=== PATIENT | male | born 1955 | race Caucasian/White ===

== ENCOUNTER 2020-11-08 14:33 | Inpatient (IN) | payer OTHER, MEDICARE ==
[~2020-11-08] VITALS: Ht 172.7 cm; Wt 88.2 kg
[~2020-11-08 14:33] MED LIST: ALBU90OI INH; ARTHRITIS PAIN100 GM TOP; ATOR40TA PO; Aspir 8181 MG PO; GABA300 PO; LISI20 PO; METO25 PO; NITR.4SL SL; PANT20 PO; SYMBICORT 80-10.2 GM INH
[2020-11-08 15:10] LABS: Hematocrit 40.3 % (37.0-53.0); Hemoglobin 13.1 g/dL (13.5-17.5); Mean Corpuscular HGB 30.3 pg (26.0-34.0); Mean Corpuscular HGB Conc 32.5 g/dL (31.5-36.5); Mean Corpuscular Volume 93 fL (80-100); Mean Platelet Volume 8.9 fL (9.1-12.4); Platelet Count 357 K/mm3 (150-400); RDW Standard Deviation 44.8 fL (35.1-46.3); Red Blood Cell Count 4.32 M/mm3 (4.30-5.90); White Blood Cell Count 9.76 K/mm3 (4.00-11.30)
[2020-11-08 15:10] LABS: Calcium, Ionized (POC) 1.06 mmol/L (1.10-1.46); Chloride (POC) 103 mmol/L (98-108); Creatinine (POC) 1.7 mg/dL (0.8-1.3); Glucose (ISTAT POC) 101 mg/dL (70-99); Hemoglobin (POC) 13.3 g/dL (13.5-17.5); Potassium (POC) 4.8 mmol/L (3.5-5.5); Sodium (POC) 135 mmol/L (135-148); Total CO2 (POC) 24 mmol/L (21-32)
[2020-11-08 15:21] LABS: International Normalized Ratio 1.04; Prothrombin Time Results 11.1 Sec (9.7-11.5)
[2020-11-08 15:24] LABS: Alanine Aminotransfer (ALT/SGP 33 U/L (12-78); Albumin, Blood 3.3 g/dL (3.4-5.0); Alk Phos 73 U/L (50-136); Anion Gap 6 mmol/L (6-16); Aspartate Aminotrans (AST/SGOT 20 U/L (12-37); Bilirubin, Total 0.5 mg/dL (0.1-1.0); Blood Urea Nitrogen 30 mg/dL (8-24); Bun/Creatinine Ratio 19.6 (12.0-20.0); CHOL/HDL RATIO 2.8; CO2, Blood 24 mmol/L (21-32); Calcium, Blood 8.7 mg/dL (8.5-10.1); Chloride, Blood 107 mmol/L (98-108); Cholesterol 68 mg/dL (50-200); Creatinine, Blood 1.53 mg/dL (0.60-1.20); Globulin, Blood 3.4 g/dL (2.2-4.0); Glomerular Filtration Rate 49 (60-); Glucose, Blood 103 mg/dL (70-99); HDL Cholesterol 24 mg/dL (>39); Low Density Lipoprotein Chol 24 mg/dL (0-110); Magnesium, Blood 2.4 mg/dL (1.6-2.4); Potassium, Blood 4.8 mmol/L (3.5-5.5); Sodium, Blood 137 mmol/L (136-145); Total Protein, Blood 6.7 g/dL (6.4-8.2); Triglycerides 100 mg/dL (30-160); Troponin I 0.047 ng/mL (0.000-0.040); Very Low Density Lipoprot Chol 20 mg/dL (6-32)
[2020-11-08] MEDS ORDERED: PLAVIX75 MG PO (16:52)
[2020-11-08 18:28] LABS: Source, Urine Catheter
[2020-11-08 18:31] LABS: Appearance, Urine Clear (Clear); Bilirubin, Urine Neg (Neg); Blood, Urine Neg (Neg); Color, Urine Yellow (P-Yellow); Glucose Qualitative, Urine Neg (Neg); Ketones, Urine Neg (Neg); Leukocyte Esterase, Urine Neg (Neg); Nitrite, Urine Neg (Neg); Protein, Urine Neg (Neg); Specific Gravity, Urine 1.015 (1.003-1.022); Urobilinogen, Urine NORM (Normal)
--- NOTE | 2020-11-08 19:16 | NUR ---
ASSUMPTION OF CARE AND SHIFT SUMMAR PATIENT ARRIVED TO UNIT AT 1710 FROM TECHNICAL SALES SPECIALIST. PATIENT ALERT AND ORIENTED X 4, AFEBRILE. PATIENT COMPLAINED OF BACK PAIN AND CHEST PAIN. PATIENT GIVEN PRN NORCO. PATIENT ON HEPARIN DRIP AT 12 UNITS/ KG/ HOUR. NITRO AT 5 MCG/ MINUTE. PATIENT SATTING 90% AND GREATER ON RA. INSPIRATORY RHONCHI NOTED IN LOWER LUNG LOBES. UPPER LUNG LOBES CLEAR TO AUSCULTATION. PATIENT IN SR WITH BBB, HR IN THE 80S. SBP LOW 80S TO LOW 100S. GI WNL. GARLAND PLACED. GARLAND INITIALLY DRAINING YELLOW COLORED URINE BUT URINE HAS NOW BECOME PINK IN COLOR. PATIENT HAS MIDLINE INCISION TO CHEST FROM TRIPLE BYPASS LAST WEEK. PATIENT HAS 2 SCABS TO LEFT LEG. SHEATH TO R GROIN; ARTERIAL LINE CONNECTED. SLIGHT OOZING OF BLOOD NOTED AND SMALL HEMATOMA AT SITE; THIS HAS NOT CHANGED SINCE TECHNICAL SALES SPECIALIST BROUGHT PATIENT DOWN. DR. LITTLE AWARE OF HEMATOMA AND STATES TO GIVE HER A CALL IF HEMATOMA INCREASES IN SIZE. SITE CHECKED WITH ONCOMING RN. BED LOW, CALL LIGHT IN REACH. PATIENT ORIENTED TO UNIT, ROOM AND CALL LIGHT.
--- NOTE | 2020-11-08 21:42 | NUR ---
ASSUMED PT CARE FROM LILY RIVERA AT 1915 PT RESTING IN BED IN THE SUPINE POSITION WITH RIGHT LEG EXTENDED STRAIGHT D/T ARTERIAL LINE NOTED TO RIGHT FEMORAL SITE. PT IS ALERT AND ORIENTED AND ABLE TO MAKE NEEDS KNOWN. SITE HAS A SMALL <5MM HEMATOMA NOTED TO INSERTION SITE. PT IS BEING COMPLIANT WITH KEEPING HIS LEG STRAIGHT AND NOT FLEXING OR BRINGING HIS HEAD OFF THE PILLOW. ARTERIAL LINE ZERO'D AT PHELBOSTATIC AXIS; BP'S STABLE; SBP 90-110'S, SEE FLOWSHEET. HEPARIN WAS INFUSING AT 12MCG/KG/HR UPON START OF SHIFT. NO PTT HAD BEEN DRAWN AT THIS POINT. BLOOD NOTED IN GARLAND CATHETER BAG WITH SOME MIXED AIDEN, CLEAR URINE. CALLED PHARMACY REGARDING NO ORDER FOR HEPARIN TO BE INFUSING AT 12MCG/KG/HR, WELL ASKED FOR A STAT PTT D/T BLOOD IN URINE. PTT DRAWN WITH RESULTS SHOWING CRITICAL LAB OF >139. PHARMACY NOTIFIED WITH ORDERS TO STOP HEPARIN; WITH REDRAW PTT LABS. SITE REMAINED STABLE WITH MINIMAL OOZING. PT C/O 3/10 BACK AND CHEST PAIN. PT MEDICATED WITH NORCO ON DAY SHIFT; HOWEVER, WAS UNEFFECTIVE FOR BACK PAIN. TURNED NITRO GTT UP FROM 5MCG/MIN TO 10MCG/MIN. UPON REASSESSMENT PT STATED CHEST PAIN WAS A 1/10; HOWEVER, BACK PAIN WAS STILL A 3/10. TURNED NITRO GTT OFF D/T SOFT BP'S AND HEADACHE; THEN MEDICATED WITH 0.5MG OF DILAUDID WITH GOOD EFFECT. CALL LIGHT WITHIN REACH; PT ABLE TO MAKE NEEDS KNOWN. EDUCATED NOT TO BEND OR FLEX RIGHT LEG, BUT ABLE TO BEND/FLEX LEFT. THEREFORE, PT ABLE TO SLIGHTLY SHIFT WEIGHT WITH RETURN VERBAL UNDERSTANDING AND DEMONSTRATION OF RESTRICTIONS. WILL CONTINUE TO MONITOR.
[2020-11-09 03:26] LABS: BASOPHILS PERCENT AUTO 1 % (0-2); EOSINOPHILS PERCENT AUTO 5 % (0-6); Hematocrit 37.8 % (37.0-53.0); Hemoglobin 12.5 g/dL (13.5-17.5); IMMATURE GRAN ABSOLUTE AUTO 0.09 K/mm3 (0.00-0.10); IMMATURE GRAN PERCENT AUTO 1 % (0-1); LYMPHOCYTES ABSOLUTE AUTO 1.32 K/mm3 (0.84-5.20); LYMPHOCYTES PERCENT AUTO 16 % (21-46); MONOCYTES ABSOLUTE AUTO 0.56 K/mm3 (0.16-1.47); MONOCYTES PERCENT AUTO 7 % (4-13); Mean Corpuscular HGB 30.1 pg (26.0-34.0); Mean Corpuscular HGB Conc 33.1 g/dL (31.5-36.5); Mean Corpuscular Volume 91 fL (80-100); Mean Platelet Volume 8.8 fL (9.1-12.4); NEUTROPHILS ABSOLUTE AUTO 5.58 K/mm3 (1.96-9.15); NEUTROPHILS PERCENT AUTO 69 % (41-73); Platelet Count 295 K/mm3 (150-400); RDW Standard Deviation 43.8 fL (35.1-46.3); Red Blood Cell Count 4.15 M/mm3 (4.30-5.90); White Blood Cell Count 8.05 K/mm3 (4.00-11.30)
[2020-11-09 03:44] LABS: Anion Gap 4 mmol/L (6-16); Blood Urea Nitrogen 25 mg/dL (8-24); Bun/Creatinine Ratio 20.8 (12.0-20.0); CO2, Blood 26 mmol/L (21-32); CPK Creatine Kinase 39 U/L (39-308); Calcium, Blood 8.4 mg/dL (8.5-10.1); Chloride, Blood 109 mmol/L (98-108); Creatine Kinase MB 1.7 ng/mL (0.0-3.6); Creatine Kinase MB Index 4.4 (0.0-4.0); Glomerular Filtration Rate >60 (60-); Glucose, Blood 96 mg/dL (70-99); Potassium, Blood 4.7 mmol/L (3.5-5.5); Sodium, Blood 139 mmol/L (136-145); Troponin I 0.188 ng/mL (0.000-0.040)
--- NOTE | 2020-11-09 06:06 | NUR ---
END OF SHIFT SUMMARY NO SIGNIFICANT CHANGES SINCE LAST ENTRY. HEPARIN GTT RESTARTED AT 13 UNITS/KG/HR. PT RECEIVED A BOLUS DOSE OF 4500 UNITS. FEMORAL LINE REMAINS IN PLACE WITH SAME HEMATOMA NOTED AT INSERTION SITE; HAS NOT GROWN ANY BIGGER. BLOOD IN URINE HAS NOTED TO SLOW DOWN AND URINE IS TURNING BACK TO AN AIDEN, CLEAR. PT C/O 02/06 BACK PAIN T/O NIGHT AND A DULL, ACHE CHEST PAIN. NITRO GTT REMAINED OFF T/O SHIFT AND PT HAS BEEN MEDICATED WITH DILAUDID AND NORCO PER ORDERS, WHICH HAVE BOTH BEEN EFFECTIVE FOR PT. PT IS VERY COMPLIANT WITH UTILIZING HIS PILLOW TO SPLINT FOR DEEP BREATHING AND COUGHING EXERCISES. OBTAINED INCENTIVE SPIROMETER TO KEEP AT BEDSIDE. PT REQUESTING TO SPEAK WITH LEASING SPECIALIST REGARDING HIS DIET IT HAS BEEN DIFFICULT FOR HIM TO ADJUST AFTER HIS CABG PROCEDURE. PT HAS BEEN VERY APPRECIATIVE OF CARES. CALL LIGHT WITHIN REACH AND PT ABLE TO MAKE NEEDS KNOWN; WILL CONTINUE TO MONITOR UNTIL REPORT IS HANDED OFF TO ONCOMING RN.
--- NOTE | 2020-11-09 07:15 | NUR ---
Assumed care of pt at 0700 with LILY Wyatt. Pt A&O x 4. Answers questions. Follows commands verbalizes needs. Pleasant and cooperative with care. Denies chest pain and shortness of breath. Nitro drip off. SR per monitor. BP stable, 90s/60s. MAP 60 or greater. BP measured by artieral line to right femoral artery. Site has a small amount of dried red drainage. Small hematoma, assessed with offgoing RN, unchanged. Site dressed with tegaderm CHG. Pt verbalizes understanding of activity limitations with regard to art line. Bed in lowest position. Call light in reach. Pt denies need at this time.
--- NOTE | 2020-11-09 08:00 | NUR ---
Call placed to Dr Vail. Clarified nitro drip and notified provider that pt is free of chest pain and BP is low/normal. Nitro to remain off as long as pt is free of chest pain. Clarified AM meds. Provider changed metopolol dose, stated to give ranexa. Hold lisinopril. Hold Imdur, but reassess at 1200. 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
--- NOTE | 2020-11-09 09:45 | NUR ---
Dr Vail in to see pt. Pt reports pain to LUQ, worse with inhalation. Patient states that this is affecting his ability to take a deep breath and use incentive spirometer. Medicated with dilaudid. Dr Vail to place orders for GI meds.
--- NOTE | 2020-11-09 11:45 | NUR ---
Pt reports that LUQ pain is worsening. Call placed to Dr Vail to update on GI meds and failure to relieve pain. Message left with provider.
--- NOTE | 2020-11-09 12:15 | NUR ---
Patient states that pain moved to his chest and pain is now 8/10, "like fire". Nitro drip restarted. At this time, 20 mcg/min. Not relieving chest pain. Discussed case with broker in charge, diluadid given. Call placed to provider 2 times since last note, provider unable to come to phone, message left with labor operator staff requesting provider to come see pt. SBP 85-90 mmHg. MAP 60-65.
--- NOTE | 2020-11-09 12:45 | NUR ---
After administration of dilaudid, pt did not tolerate IV nitroglycerin. Nitroglycerin on standby. Dr Vail in to see patient. 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 States to leave nitroglycerin on SB. Give IV metoprolol for tachycardia and versed to help with pt's anxiety.
--- NOTE | 2020-11-09 13:00 | NUR ---
Patient to laboratory immunologist.
--- NOTE | 2020-11-09 15:45 | NUR ---
Pt back from carpenter/labor. Pt earned one stent to circ. Femoral sheath is now absent. Site closed with angioseal. Site dressed with tegadem CHG. Dressing C/D/I. Site has small hematoma, unchanged from prior documentation. Pt reports chest pain 01/09. Pt drowsy.
--- NOTE | 2020-11-09 18:08 | NUR ---
SUMMARY Pt A&O x 4. Drowsy post clinical laboratory aides teacher. Chest pain increased to 6/10. Dilaudid given. This did not resolve chest pain. Nitro drip started at 5 mcg/min but has since been titrated up to 15 mcg/min. BP stable. At this time, chest pain is 3/10. Metoprolol given and Imdur given. Pt on 2 LPM NC due to drop in SpO2 with sleep. SpO2 90% org greater at this time. Will continue to closely monitor until care handoff and bedside report with oncoming RN.
--- NOTE | 2020-11-09 20:00 | NUR ---
ASSUMED PT CARE AT 1900 FROM LILY LO PT SITTING UP IN BED. APPEARS PALE, CLAMMY, AND DIAPHORETIC. STATES HE DOESN'T FEEL WELL. C/O 3/10 CHEST PAIN. NITRO GTT INFUSING AT 15MCG/MIN. BP'S ON THE SOFTER SIDE WITH SBP NOTED TO BE 80-90, MAPS >60. TURNED OFF NITRO AT THIS TIME AND MEDICATED WITH DILAUDID INSTEAD, WHICH APPEARED MORE EFFECTIVE FOR PT THAN NITRO GTT. LUNG SOUNDS ARE CLEAR TO BILATERAL UPPERS, AND DIMINISHED TO BILATERAL LOWERS. PT NOTED TO BE SHALLOW BREATHING; UNABLE TO USE INCENTIVE SPIROMETER D/T PAIN. PT HAD AN EPISODE OF CHOKING ON HIS WATER THIS MORNING WHILE TAKING HIS MEDICATIONS; PLAN IS TO CALL DR. LUEVANO REGARDING A CHEST XRAY. PT HAS A VERY WEAK COUGH; HOWEVER, STATES HE STILL FEELS RESIDUAL "JUNK" IN HIS LUNGS FROM THIS MORNING AFTER HIS ASPIRATION EPISODE. NO ELEVATED TEMP. VSS REMAIN UNCHANGED AND STABLE, SEE FLOWSHEET. CALL LIGHT WITHIN REACH; WILL CONTINUE TO MONITOR.
--- NOTE | 2020-11-09 20:04 | NUR ---
DR. MOREL CALLED REGARDING CONCERNS REGARDING PT'S SHALLOW BREATHING AND PAIN WITH INSPIRATIONS. INFORMED DR. MOREL THAT PT DID ASPIRATE ON A LITTLE BIT OF WATER EARLIER THIS MORNING DURING AM MED PASS AND PT DOESN'T FEEL LIKE HE WAS ABLE TO CLEAR IT WELL ENOUGH D/T CHEST PAIN WHEN HE COUGHS. ORDERS FOR CXR. ALSO ASKED ABOUT MEDICATING WITH MILK OF MAGNESIA NOW D/T PT FEELING LIKE HE NEEDS TO HAVE A BM AND WANTS TO AVOID STRAINING; ORDERS OBTAINED. CLARIFIED THAT SHE STILL WANTS HEPARIN GTT STARTED AT MIDNIGHT; WHICH SHE CONFIRMED.
--- NOTE | 2020-11-09 21:43 | NUR ---
CALL OUT TO DR. MOREL RESULTS FOR CXR SHOW SOME PLEURAL EFFUSIONS AND PULMONARY EDEMA. NEW ORDERS FOR 40MG OF LASIX X1 DOSE AND TO REASSESS IN THE MORNING. ORDERS TO CALL IF TEMPERATURE SPIKES OR WBC COUNT RISES IN THE MORNING IN ORDER TO INITIATE ANTIBIOTIC TREATMENT IF NEEDED
[2020-11-09 22:56] LABS: Adenovirus Not Detected (NOT DETECT); Bordetella pertussis Not Detected (NOT DETECT); Chlamydophila pneumoniae Not Detected (NOT DETECT); Coronavirus 229E Not Detected (NOT DETECT); Coronavirus HKU1 Not Detected (NOT DETECT); Coronavirus NL63 Not Detected (NOT DETECT); Coronavirus OC43 Not Detected (NOT DETECT); Human Metapneumovirus Not Detected (NOT DETECT); Human Rhinovirus/Enterovirus Not Detected (NOT DETECT); Influenza A/2009-H1 Not Detected (NOT DETECT); Influenza A/H1 Not Detected (NOT DETECT); Influenza A/H3 Not Detected (NOT DETECT); Influenza B Not Detected (NOT DETECT); Mycoplasma pneumoniae Not Detected (NOT DETECT); Parainfluenza Virus 1 Not Detected (NOT DETECT); Parainfluenza Virus 2 Not Detected (NOT DETECT); Parainfluenza Virus 3 Not Detected (NOT DETECT); Parainfluenza Virus 4 Not Detected (NOT DETECT); Respiratory Syncytial Virus Not Detected (NOT DETECT); SARS-Cov-2 (COVID-19), BioFire Not Detected (NOT DETECT)
[2020-11-10 01:41] LABS: BASOPHILS ABSOLUTE AUTO 0.07 K/mm3 (0.00-0.23); BASOPHILS PERCENT AUTO 0 % (0-2); EOSINOPHILS ABSOLUTE AUTO 0.02 K/mm3 (0.00-0.68); EOSINOPHILS PERCENT AUTO 0 % (0-6); Hematocrit 36.8 % (37.0-53.0); Hemoglobin 12.3 g/dL (13.5-17.5); IMMATURE GRAN ABSOLUTE AUTO 0.14 K/mm3 (0.00-0.10); IMMATURE GRAN PERCENT AUTO 1 % (0-1); LYMPHOCYTES PERCENT AUTO 4 % (21-46); MONOCYTES ABSOLUTE AUTO 1.37 K/mm3 (0.16-1.47); MONOCYTES PERCENT AUTO 7 % (4-13); Mean Corpuscular HGB 30.4 pg (26.0-34.0); Mean Corpuscular HGB Conc 33.4 g/dL (31.5-36.5); Mean Corpuscular Volume 91 fL (80-100); Mean Platelet Volume 9.2 fL (9.1-12.4); NEUTROPHILS ABSOLUTE AUTO 17.86 K/mm3 (1.96-9.15); NEUTROPHILS PERCENT AUTO 88 % (41-73); Platelet Count 404 K/mm3 (150-400); RDW Coefficient Variation 12.9 % (11.7-14.2); RDW Standard Deviation 42.6 fL (35.1-46.3); Red Blood Cell Count 4.05 M/mm3 (4.30-5.90); White Blood Cell Count 20.26 K/mm3 (4.00-11.30)
--- NOTE | 2020-11-10 01:44 | NUR ---
UPDATE CALL OUT TO DR. MOREL REGARDING CHANGE IN PT'S CONDITION. PT APPEARS VERY PALE, DIAPHORETIC, AND ALTERED IN MENTATION. HE KNOWS WHERE HE HIS AND WHAT YEAR IT IS; HOWEVER, WHEN ASKED SPECIFIC QUESTIONS PT RESPONDS WITH NONSENSICAL RESPONSES. STATES HIS CHEST PAIN IS 3/10; MEDICATED WITH DILAUDID WITH MINIMAL EFFECT. PT IS VERY SOB; SPEAKS IN 1-2 WORD SENTENCES; OXYGEN PLACED AT 2L. SPO2 >95%. PT STATES HE CAN'T GET ANY AIR. LUNG SOUNDS ARE VERY TIGHT AND DIMINISHED TO BILATERAL LOWER LOBES. DR. MOREL AT BEDSIDE WITH ORDERS FOR BLOOD CULTURES X2; LACTIC ACID, AND LASIX 40MG IV NOW. MORNING LABS OBTAINED AND SENT. WAITING CHEM RESULTS TO SEE WHAT ANTIOBIOTIC COVERAGE PT WILL REQUIRE. CONSULT CALLED TO DR. DALTON FOR CRITICAL CARE CONSULT PER DR. MOREL D/T POSSIBLE INTUBATION IF PT'S RESPIRATORY STATUS CONTINUES TO DECLINE. ORDERS FOR ABG AND BIPAP IF NEEDED. HR REMAINS 110-120'S WITH BP'S LOW; SBP 70-90'S.
[2020-11-10 01:54] LABS: PO2 Arterial 70.4 mmHg (80-100); pH Blood Arterial 7.42 (7.35-7.45)
[2020-11-10 02:12] LABS: Bun/Creatinine Ratio 23.5 (12.0-20.0); Calcium, Blood 8.5 mg/dL (8.5-10.1); Creatinine, Blood 1.53 mg/dL (0.60-1.20); Potassium, Blood 5.4 mmol/L (3.5-5.5)
[2020-11-10 02:14] LABS: Troponin I 4.42 ng/mL (0.000-0.040)
[2020-11-10 05:27] LABS: Hematocrit 34.5 % (37.0-53.0); Hemoglobin 11.6 g/dL (13.5-17.5); Mean Corpuscular HGB 30.9 pg (26.0-34.0); Mean Corpuscular HGB Conc 33.6 g/dL (31.5-36.5); Mean Corpuscular Volume 92 fL (80-100); Platelet Count 349 K/mm3 (150-400); RDW Standard Deviation 43.4 fL (35.1-46.3); Red Blood Cell Count 3.75 M/mm3 (4.30-5.90); White Blood Cell Count 19.54 K/mm3 (4.00-11.30)
[2020-11-10 06:00] LABS: Bun/Creatinine Ratio 22.4 (12.0-20.0); Calcium, Blood 8.3 mg/dL (8.5-10.1); Creatinine, Blood 1.56 mg/dL (0.60-1.20); Potassium, Blood 5.2 mmol/L (3.5-5.5)
--- NOTE | 2020-11-10 06:01 | NUR ---
END OF SHIFT SUMMARY ANTIBIOTICS INITIATED AND PT STATES HE IS FEELING SLIGHTLY BETTER. CONTINUE TO MEDICATE WITH DILAUDID FOR CHEST PAIN. HEPARIN GTT INFUSING AT 15 UNITS/KG/HR. AFEBRILE. LUNG SOUNDS REMAIN CLEAR TO BILATERAL UPPERS AND TIGHT/DIMINISHED TO BILATERAL LOWER LOBES. GARLAND CATHETER CONTINUES TO BE PATENT AND DRAINING DARK, AIDEN COLORED URINE WITH SEDIMENT. ANGIOSEAL CLOSURE DEVICE TO RIGHT FEMORAL SITE; SITE HAS REMAINED STABLE. UNCHANGED HEMATOMA WITH DIFFUSE BRUISING TO AREA. PT HAS BEEN UTILIZING CHEST PILLOW TO SPLINT WITH DB&C EXERCISES. PT APPEARS VERY WEAK; HOWEVER, ABLE TO MAKE NEEDS KNOWN. CALL LIGHT WITHIN REACH. WILL CONTINUE TO MONITOR UNTIL REPORT IS HANDED OFF TO ONCOMING RN.
[2020-11-10 06:04] LABS: Troponin I 6.2 ng/mL (0.000-0.040)
--- NOTE | 2020-11-10 07:15 | NUR ---
PT RECEIVED FROM EVER RN, PT AWAKENS WHEN WE WALK IN THE ROOM. PT STATES HE FEELS LIKE HE CAN'T GET ENOUGH AIR, THAT HE IS "STRUGGLING" A LITTLE. ALSO STATES HIS PAIN IS AT 2. PT IS IN ST WITH A RATE BETWEEN 100-110. BLOOD PRESSURE 80/50'S MAP REMAINING ABOVE 60. PT AT 2L PER NC OF 02. GARLAND IN PLACE WITH AIDEN RETURN. GROIN SITE LOOKS GOOD, SOME BRUISING REMAINS BUT HEMATOMA RESOLVING. PT SLEEPY, STATES HE HAD A ROUGH NIGHT. HEPARIN GTT AT 15U, NS AT TKO, PT WITH GOOD USE OF ALL EXTREMITIES AND ABLE TO HELP POSITION AND REPOSITION HIMSELF.
--- NOTE | 2020-11-10 07:45 | NUR ---
Call placed to Dr Vail. Pt hypotensive. Orders given for PICC line, and 250 mL bolus of NS. Plan to hold metoprolol and Imdur until further notice.
--- NOTE | 2020-11-10 09:31 | NUR ---
PT JUST FINISHED HAVING PICC LINE PLACED BY LILY FOSS. HE STATES THAT HIS PAIN IS INCREASING IN HIS CHEST. HE IS EDUCATED ABOUT MEDICATION AND BLOOD PRESSURE. PT UNDERSTANDS THAT WHEN HIS BLOOD PRESSURE IS BELOW A CERTAIN LEVEL HE IS NOT ABLE TO RECEIVE SOME MEDICATIONS. O2 TAKEN OFF FOR FACE CLEANING AND SATS AT 93%, WILL CONTINUE TO MONITOR TO SEE IF THE O2 NEEDS TO BE PUT BACK ON. PT SPOKE WITH , TOLD HER HE HAS PNEUMONIA AND HAS BEEN STARTED ON ANTIBIOTICS. AFTER FINISHING PHONE CALL, PT SAID TO THIS RN THAT HE IS CONCERNED ABOUT FALLING ASLEEP, AFRAID HE MAY NOT WAKE BACK UP. PT GIVEN REASSURANCE.
--- NOTE | 2020-11-10 09:45 | NUR ---
Call placed to Dr Vail to notify that PICC line has been placed, also updated on blood pressures. Orders given for levophed, to start at low dose. Patient is having chest pain, now "a 3 or a 4" out of 10. Plan to give ativan after levophed has been started.
--- NOTE | 2020-11-10 10:20 | NUR ---
IN TO SEE PATIENT. ASSESSMENT DONE, REPORT OF PATIENT STATUS, DRIPS AND UPDATES FROM . NO NEW ORDERS RECEIVED.
--- NOTE | 2020-11-10 11:44 | NUR ---
PT JUST RETURNED FROM CT SCAN, TOLERATED PROCEDURE WELL. EXPERIENCED SOME DISCOMFORT WITH TRANSFER TO AND FROM CT TABLE. UPON RETURN PT SAT UP IN BED TO TRY TO COUGH, UNABLE TO COUGH ANYTHING UP. BP LABILE,LEVOPHED ADJUSTED PER PROTOCOL.
--- NOTE | 2020-11-10 12:30 | NUR ---
Call placed to Dr Vail to update that pt's levophed requirements have increased. Also updated provider that troponin has increased.
--- NOTE | 2020-11-10 17:30 | NUR ---
HERE TO SEE PATIENT, DECISION MADE TO TRANSFER TO SURGEON WHO PERFORMED THE CABG AT [facility]. PT BEING PREPARED FOR TRANSFER. CALLED THE TO SHARE THE NEWS. PT HAS EXPRESSED DISAPPOINTMENT IN HAVING TO GO TO [facility]. WISHED HE COULD STAY HERE.
--- NOTE | 2020-11-10 19:01 | NUR ---
echocardiogram complete
--- NOTE | 2020-11-10 19:04 | NUR ---
Reach here to transfer pt via ground to [facility]. Report called to Félix BAUTISTA. At this time, pt is on 10 mcg/min levophed through PICC line. SBP 80s, MAP 60s. Pt to transfer to room 4217 at [facility], - Jade, updated. Pt on room air. ST per monitor, rate 115.
[2020-11-18] MEDS ORDERED: Dilaudid 2 mg Ta2 MG PO (11:20)
[2020-11-20] MEDS ORDERED: METO25ER PO (13:43)
== END 2020-11-10 19:08 | disposition short-term general hospital (02) | DRG 247 ==
LOC: ER 14:33 → ICUW 15:09
PROVIDERS: Emergency Medicine; Internal Medicine Critical Care Medicine; ADMIT Internal Medicine Interventional Cardiology
PROC: B2111ZZ Fluoroscopy of Multiple Coronary Arteries using Low Osmolar Contrast (ICD-10-PCS; principal; 2020-11-08)
PROC: B41J1ZZ Fluoroscopy of Other Lower Arteries using Low Osmolar Contrast (ICD-10-PCS; 2020-11-08)
PROC: B240ZZ3 Ultrasonography of Single Coronary Artery, Intravascular (ICD-10-PCS; 2020-11-08)
PROC: B2121ZZ Fluoroscopy of Single Coronary Artery Bypass Graft using Low Osmolar Contrast (ICD-10-PCS; 2020-11-08)
PROC: B2131ZZ Fluoroscopy of Multiple Coronary Artery Bypass Grafts using Low Osmolar Contrast (ICD-10-PCS; 2020-11-08)
PROC: 027034Z Dilation of Coronary Artery, One Artery with Drug-eluting Intraluminal Device, Percutaneous Approach (ICD-10-PCS; 2020-11-09)
PROC: 02HV33Z Insertion of Infusion Device into Superior Vena Cava, Percutaneous Approach (ICD-10-PCS; 2020-11-10)
DX: I21.3 ST elevation (STEMI) myocardial infarction of unspecified site (principal); I25.810 Atherosclerosis of coronary artery bypass graft(s) without angina pectoris; J98.11 Atelectasis; Z79.82 Long term (current) use of aspirin; Z20.828 Contact with and (suspected) exposure to other viral communicable diseases; J44.9 Chronic obstructive pulmonary disease, unspecified; I10 Essential (primary) hypertension; E78.5 Hyperlipidemia, unspecified; I25.10 Atherosclerotic heart disease of native coronary artery without angina pectoris; Z87.891 Personal history of nicotine dependence; Z95.1 Presence of aortocoronary bypass graft
CPT/HCPCS: 0202U; 36415; 36569; 36600; 51702; 71045; 71250; 76937; 80047; 80048; 80053; 80061; 81003; 82550; 82553; 82803; 82947; 83605; 83735; 83880; 84484; 85014; 85025; 85027; 85347; 85610; 85730; 86850; 86900; 86901; 87040; 92921; 92937; 92941; 92978; 93005; 93010; 93306; 93308; 93321; 93454; 93455; 94640; 94664; 94760; 96374; 99152; 99153; 99285-25; A9270-GY; C1725; C1751; C1753; C1760; C1769; C1874; C1887; C1894; C9600; J0461; J1170; J1644; J1940; J2060; J2250; J2270; J2543; J3010; J3370; J7030; J7040; J7050; J7060; Q9967

== ENCOUNTER 2020-12-10 06:02 | Observation (INO) | payer MEDICARE, OTHER ==
[~2020-12-10] VITALS: Ht 172.7 cm; Wt 84.5 kg
[~2020-12-10 06:02] MED LIST changes: +Dilaudid 2 mg Ta2 MG PO; +METO25ER; +PANT40 PO; +PLAVIX75 MG PO
[2020-12-10 06:34] LABS: BASOPHILS PERCENT AUTO 2 % (0-2); EOSINOPHILS ABSOLUTE AUTO 0.56 K/mm3 (0.00-0.68); EOSINOPHILS PERCENT AUTO 9 % (0-6); Hematocrit 40.2 % (37.0-53.0); IMMATURE GRAN ABSOLUTE AUTO 0.03 K/mm3 (0.00-0.10); IMMATURE GRAN PERCENT AUTO 1 % (0-1); LYMPHOCYTES ABSOLUTE AUTO 1.47 K/mm3 (0.84-5.20); LYMPHOCYTES PERCENT AUTO 24 % (21-46); MONOCYTES ABSOLUTE AUTO 0.52 K/mm3 (0.16-1.47); MONOCYTES PERCENT AUTO 9 % (4-13); Mean Corpuscular HGB 29.3 pg (26.0-34.0); Mean Corpuscular HGB Conc 32.3 g/dL (31.5-36.5); Mean Corpuscular Volume 91 fL (80-100); Mean Platelet Volume 9.4 fL (9.1-12.4); NEUTROPHILS ABSOLUTE AUTO 3.46 K/mm3 (1.96-9.15); NEUTROPHILS PERCENT AUTO 56 % (41-73); Platelet Count 195 K/mm3 (150-400); RDW Coefficient Variation 13.6 % (11.7-14.2); RDW Standard Deviation 45.1 fL (35.1-46.3); Red Blood Cell Count 4.43 M/mm3 (4.30-5.90); White Blood Cell Count 6.14 K/mm3 (4.00-11.30)
[2020-12-10 06:47] LABS: Alanine Aminotransfer (ALT/SGP 12 U/L (12-78); Albumin, Blood 3.1 g/dL (3.4-5.0); Albumin/Globulin Ratio 0.8 (0.8-1.8); Alk Phos 102 U/L (50-136); Anion Gap 8 mmol/L (6-16); Aspartate Aminotrans (AST/SGOT 7 U/L (12-37); Bilirubin, Total 0.4 mg/dL (0.1-1.0); Blood Urea Nitrogen 17 mg/dL (8-24); Bun/Creatinine Ratio 13.3 (12.0-20.0); CO2, Blood 26 mmol/L (21-32); Calcium, Blood 8.7 mg/dL (8.5-10.1); Chloride, Blood 108 mmol/L (98-108); Creatinine, Blood 1.28 mg/dL (0.60-1.20); Globulin, Blood 3.7 g/dL (2.2-4.0); Glomerular Filtration Rate 60 (60-); Glucose, Blood 101 mg/dL (70-99); Potassium, Blood 3.9 mmol/L (3.5-5.5); Sodium, Blood 142 mmol/L (136-145); Total Protein, Blood 6.8 g/dL (6.4-8.2); Troponin I <0.015 ng/mL (0.000-0.040)
--- NOTE | 2020-12-10 11:48 | NUR ---
Echocardiogram completed.
== END 2020-12-10 14:05 | disposition short-term general hospital (02) ==
LOC: ER 06:02 → PCU 06:03
PROVIDERS: Emergency Medicine; ADMIT Family Medicine
DX: R07.9 Chest pain, unspecified (principal); I25.10 Atherosclerotic heart disease of native coronary artery without angina pectoris; I10 Essential (primary) hypertension; E78.5 Hyperlipidemia, unspecified; I25.2 Old myocardial infarction; J44.9 Chronic obstructive pulmonary disease, unspecified; K21.9 Gastro-esophageal reflux disease without esophagitis; Z95.1 Presence of aortocoronary bypass graft; Z95.5 Presence of coronary angioplasty implant and graft; Z87.891 Personal history of nicotine dependence; Z79.82 Long term (current) use of aspirin; Z79.02 Long term (current) use of antithrombotics/antiplatelets; Z79.899 Other long term (current) drug therapy; Z88.5 Allergy status to narcotic agent; Z88.8 Allergy status to other drugs, medicaments and biological substances; Z20.822 Contact with and (suspected) exposure to COVID-19
CPT/HCPCS: 71046; 80053; 83880; 84484; 85025; 85651; 86140; 93308; 93321; 96374; 96375; 96376; 99285-25; A9270; G0378; J2270; J2405; J3010; J7030

== ENCOUNTER 2020-12-24 09:46 | Emergency (ER) | payer MEDICARE, OTHER ==
[~2020-12-24] VITALS: Ht 172.7 cm; Wt 88.0 kg
[2020-12-24 10:48] LABS: BASOPHILS ABSOLUTE AUTO 0.09 K/mm3 (0.00-0.23); BASOPHILS PERCENT AUTO 1 % (0-2); EOSINOPHILS ABSOLUTE AUTO 0.48 K/mm3 (0.00-0.68); EOSINOPHILS PERCENT AUTO 6 % (0-6); Hematocrit 43.9 % (37.0-53.0); Hemoglobin 14.2 g/dL (13.5-17.5); IMMATURE GRAN ABSOLUTE AUTO 0.02 K/mm3 (0.00-0.10); IMMATURE GRAN PERCENT AUTO 0 % (0-1); LYMPHOCYTES ABSOLUTE AUTO 1.25 K/mm3 (0.84-5.20); LYMPHOCYTES PERCENT AUTO 16 % (21-46); MONOCYTES ABSOLUTE AUTO 0.51 K/mm3 (0.16-1.47); MONOCYTES PERCENT AUTO 7 % (4-13); Mean Corpuscular HGB 29.1 pg (26.0-34.0); Mean Corpuscular HGB Conc 32.3 g/dL (31.5-36.5); Mean Corpuscular Volume 90 fL (80-100); Mean Platelet Volume 9.5 fL (9.1-12.4); NEUTROPHILS ABSOLUTE AUTO 5.32 K/mm3 (1.96-9.15); NEUTROPHILS PERCENT AUTO 69 % (41-73); Platelet Count 216 K/mm3 (150-400); RDW Coefficient Variation 13.7 % (11.7-14.2); RDW Standard Deviation 45.3 fL (35.1-46.3); Red Blood Cell Count 4.88 M/mm3 (4.30-5.90); White Blood Cell Count 7.67 K/mm3 (4.00-11.30)
[2020-12-24 11:02] LABS: Alanine Aminotransfer (ALT/SGP 15 U/L (12-78); Albumin, Blood 3.3 g/dL (3.4-5.0); Alk Phos 102 U/L (50-136); Anion Gap 10 mmol/L (6-16); Aspartate Aminotrans (AST/SGOT 10 U/L (12-37); Bilirubin, Total 0.6 mg/dL (0.1-1.0); Blood Urea Nitrogen 19 mg/dL (8-24); Bun/Creatinine Ratio 16.5 (12.0-20.0); CO2, Blood 23 mmol/L (21-32); Calcium, Blood 8.9 mg/dL (8.5-10.1); Chloride, Blood 108 mmol/L (98-108); Creatinine, Blood 1.15 mg/dL (0.60-1.20); Globulin, Blood 3.4 g/dL (2.2-4.0); Glomerular Filtration Rate >60 (60-); Glucose, Blood 112 mg/dL (70-99); Potassium, Blood 4.3 mmol/L (3.5-5.5); Sodium, Blood 141 mmol/L (136-145); Total Protein, Blood 6.7 g/dL (6.4-8.2); Troponin I <0.015 ng/mL (0.000-0.040)
[2020-12-24] MEDS ORDERED: COLCHICINE0.6 MG PO (11:27)
== END 2020-12-24 11:34 | disposition home or self-care (01) ==
LOC: ER 09:46
PROVIDERS: Emergency Medicine
DX: I31.9 Disease of pericardium, unspecified (principal); I10 Essential (primary) hypertension; E78.5 Hyperlipidemia, unspecified; I25.810 Atherosclerosis of coronary artery bypass graft(s) without angina pectoris; Z95.1 Presence of aortocoronary bypass graft; Z79.51 Long term (current) use of inhaled steroids; Z79.82 Long term (current) use of aspirin; Z79.899 Other long term (current) drug therapy; Z88.5 Allergy status to narcotic agent; Z88.8 Allergy status to other drugs, medicaments and biological substances
CPT/HCPCS: 36415; 71045; 80053; 84484; 85025; 93005; 93010; 99285-25

== ENCOUNTER 2021-01-22 16:10 | Emergency (ER) | payer MEDICARE, OTHER ==
[~2021-01-22] VITALS: Ht 172.7 cm; Wt 86.2 kg
[~2021-01-22 16:10] MED LIST changes: +COLCHICINE0.6 MG PO
[2021-01-22 16:52] LABS: BASOPHILS ABSOLUTE AUTO 0.08 K/mm3 (0.00-0.23); BASOPHILS PERCENT AUTO 1 % (0-2); EOSINOPHILS ABSOLUTE AUTO 0.28 K/mm3 (0.00-0.68); EOSINOPHILS PERCENT AUTO 4 % (0-6); Hematocrit 43.8 % (37.0-53.0); Hemoglobin 14.7 g/dL (13.5-17.5); IMMATURE GRAN ABSOLUTE AUTO 0.02 K/mm3 (0.00-0.10); IMMATURE GRAN PERCENT AUTO 0 % (0-1); LYMPHOCYTES ABSOLUTE AUTO 1.34 K/mm3 (0.84-5.20); LYMPHOCYTES PERCENT AUTO 21 % (21-46); MONOCYTES ABSOLUTE AUTO 0.45 K/mm3 (0.16-1.47); MONOCYTES PERCENT AUTO 7 % (4-13); Mean Corpuscular HGB 29.3 pg (26.0-34.0); Mean Corpuscular HGB Conc 33.6 g/dL (31.5-36.5); Mean Corpuscular Volume 87 fL (80-100); Mean Platelet Volume 11.1 fL (9.1-12.4); NEUTROPHILS ABSOLUTE AUTO 4.13 K/mm3 (1.96-9.15); NEUTROPHILS PERCENT AUTO 66 % (41-73); Platelet Count 146 K/mm3 (150-400); RDW Coefficient Variation 13.5 % (11.7-14.2); RDW Standard Deviation 43.6 fL (35.1-46.3); Red Blood Cell Count 5.02 M/mm3 (4.30-5.90)
[2021-01-22 17:36] LABS: Albumin, Blood 3.3 g/dL (3.4-5.0); Albumin/Globulin Ratio 1.1 (0.8-1.8); Bilirubin, Total 0.8 mg/dL (0.1-1.0); Bun/Creatinine Ratio 10.1 (12.0-20.0); Calcium, Blood 8.8 mg/dL (8.5-10.1); Creatinine, Blood 1.39 mg/dL (0.60-1.20); Globulin, Blood 2.9 g/dL (2.2-4.0); Potassium, Blood 3.9 mmol/L (3.5-5.5); Total Protein, Blood 6.2 g/dL (6.4-8.2); Troponin I 0.024 ng/mL (0.000-0.040)
[2021-01-22 18:50] LABS: International Normalized Ratio 1.08; Prothrombin Time Results 11.5 Sec (9.7-11.5)
== END 2021-01-22 20:00 | disposition short-term general hospital (02) ==
LOC: ER 16:10
PROVIDERS: Emergency Medicine; Pharmacist
DX: I21.4 Non-ST elevation (NSTEMI) myocardial infarction (principal); Z88.5 Allergy status to narcotic agent; Z88.1 Allergy status to other antibiotic agents; Z79.82 Long term (current) use of aspirin; Z87.891 Personal history of nicotine dependence; Z79.899 Other long term (current) drug therapy; J44.9 Chronic obstructive pulmonary disease, unspecified; I10 Essential (primary) hypertension
CPT/HCPCS: 71045; 71275; 80053; 83690; 83880; 84484; 85025; 85610; 85651; 85730; 86140; 93005; 93010; 96361; 96365; 96375; 96376; 99285-25; A9270; J1644; J1885; J2270; J2405; J7030; Q9967

== ENCOUNTER 2021-01-30 09:28 | Day surgery (SDC) | payer MEDICARE, OTHER ==
[~2021-01-30] VITALS: Ht 172.7 cm; Wt 86.0 kg
[2021-01-30] MEDS ORDERED: RANEXA1000 M1 (10:29)
== END 2021-01-30 15:30 | disposition home or self-care (01) ==
LOC: MHTC 09:28
DX: I77.72 Dissection of iliac artery (principal); I72.3 Aneurysm of iliac artery; I77.1 Stricture of artery; I70.213 Atherosclerosis of native arteries of extremities with intermittent claudication, bilateral legs; I25.10 Atherosclerotic heart disease of native coronary artery without angina pectoris; I10 Essential (primary) hypertension; M19.90 Unspecified osteoarthritis, unspecified site; J44.9 Chronic obstructive pulmonary disease, unspecified; E78.5 Hyperlipidemia, unspecified; I25.2 Old myocardial infarction; Z95.1 Presence of aortocoronary bypass graft; Z95.828 Presence of other vascular implants and grafts; Z88.1 Allergy status to other antibiotic agents; Z88.5 Allergy status to narcotic agent; Z87.891 Personal history of nicotine dependence; Z79.82 Long term (current) use of aspirin
CPT/HCPCS: 37221; 75625; 75716; 75774; 76937; 99152; 99153; C1725; C1769; C1876; C1887; C1894; J1644; J2250; J3010; J7030; J7050; Q9967

== ENCOUNTER 2021-08-08 13:49 | Observation (INO) | payer OTHER, MEDICARE ==
[~2021-08-08] VITALS: Ht 177.8 cm; Wt 90.7 kg
[~2021-08-08 13:49] MED LIST changes: -ATOR40TA PO; +ATOR80 PO; +RANO500T PO; +SYMBICORT 160-4.6 GM INH
[2021-08-08] MEDS ORDERED: ISOMON20 PO (14:08)
[2021-08-08 14:21] LABS: BASOPHILS ABSOLUTE AUTO 0.09 K/mm3 (0.00-0.23); BASOPHILS PERCENT AUTO 1 % (0-2); EOSINOPHILS ABSOLUTE AUTO 0.34 K/mm3 (0.00-0.68); EOSINOPHILS PERCENT AUTO 4 % (0-6); Hematocrit 46.2 % (37.0-53.0); Hemoglobin 15.4 g/dL (13.5-17.5); IMMATURE GRAN ABSOLUTE AUTO 0.05 K/mm3 (0.00-0.10); IMMATURE GRAN PERCENT AUTO 1 % (0-1); LYMPHOCYTES ABSOLUTE AUTO 1.21 K/mm3 (0.84-5.20); LYMPHOCYTES PERCENT AUTO 15 % (21-46); MONOCYTES PERCENT AUTO 6 % (4-13); Mean Corpuscular HGB 28.3 pg (26.0-34.0); Mean Corpuscular HGB Conc 33.3 g/dL (31.5-36.5); Mean Corpuscular Volume 85 fL (80-100); Mean Platelet Volume 9.2 fL (9.1-12.4); NEUTROPHILS ABSOLUTE AUTO 5.97 K/mm3 (1.96-9.15); NEUTROPHILS PERCENT AUTO 73 % (41-73); Platelet Count 207 K/mm3 (150-400); RDW Coefficient Variation 14.7 % (11.7-14.2); RDW Standard Deviation 45.3 fL (35.1-46.3); Red Blood Cell Count 5.44 M/mm3 (4.30-5.90); White Blood Cell Count 8.16 K/mm3 (4.00-11.30)
[2021-08-08 14:34] LABS: Prothrombin Time Results 10.8 Sec (9.7-11.5)
[2021-08-08 14:47] LABS: Alanine Aminotransfer (ALT/SGP 25 U/L (12-78); Albumin, Blood 3.4 g/dL (3.4-5.0); Albumin/Globulin Ratio 0.8 (0.8-1.8); Alk Phos 127 U/L (50-136); Anion Gap 5 mmol/L (6-16); Aspartate Aminotrans (AST/SGOT 21 U/L (12-37); Bilirubin, Total 0.6 mg/dL (0.1-1.0); Blood Urea Nitrogen 14 mg/dL (8-24); Bun/Creatinine Ratio 10.3 (12.0-20.0); CO2, Blood 25 mmol/L (21-32); Calcium, Blood 8.5 mg/dL (8.5-10.1); Chloride, Blood 110 mmol/L (98-108); Creatinine, Blood 1.36 mg/dL (0.60-1.20); Glomerular Filtration Rate 52 (60-); Glucose, Blood 111 mg/dL (70-99); Sodium, Blood 140 mmol/L (136-145); Total Protein, Blood 7.4 g/dL (6.4-8.2); Troponin I <0.015 ng/mL (0.000-0.040)
[2021-08-08] MEDS ORDERED: THERA-D2000 UNIT PO (19:18)
[2021-08-08] MEDS ORDERED: GABA300 PO (19:19)
[2021-08-08] MEDS ORDERED: FLUT1DIS5 INH (19:19)
[2021-08-08] MEDS ORDERED: ISOSORBIDE MONO60 MG PO (19:20)
[2021-08-08] MEDS ORDERED: METO50 PO (19:21)
[2021-08-08] MEDS ORDERED: MULVITA PO (19:21)
[2021-08-08] MEDS ORDERED: Vitamin B Comple1 EA PO (19:22)
[2021-08-08 19:30] LABS: SARS-Cov-2 (COVID-19) PCR, MMC NEGATIVE (NEGATIVE)
[2021-08-09 00:12] LABS: BASOPHILS ABSOLUTE AUTO 0.06 K/mm3 (0.00-0.23); BASOPHILS PERCENT AUTO 1 % (0-2); EOSINOPHILS ABSOLUTE AUTO 0.38 K/mm3 (0.00-0.68); EOSINOPHILS PERCENT AUTO 6 % (0-6); Hematocrit 41.6 % (37.0-53.0); Hemoglobin 13.8 g/dL (13.5-17.5); IMMATURE GRAN ABSOLUTE AUTO 0.02 K/mm3 (0.00-0.10); IMMATURE GRAN PERCENT AUTO 0 % (0-1); LYMPHOCYTES ABSOLUTE AUTO 1.37 K/mm3 (0.84-5.20); LYMPHOCYTES PERCENT AUTO 21 % (21-46); MONOCYTES ABSOLUTE AUTO 0.41 K/mm3 (0.16-1.47); MONOCYTES PERCENT AUTO 6 % (4-13); Mean Corpuscular HGB 27.9 pg (26.0-34.0); Mean Corpuscular HGB Conc 33.2 g/dL (31.5-36.5); Mean Corpuscular Volume 84 fL (80-100); Mean Platelet Volume 9.3 fL (9.1-12.4); NEUTROPHILS ABSOLUTE AUTO 4.22 K/mm3 (1.96-9.15); NEUTROPHILS PERCENT AUTO 65 % (41-73); Platelet Count 163 K/mm3 (150-400); RDW Coefficient Variation 14.8 % (11.7-14.2); RDW Standard Deviation 45.3 fL (35.1-46.3); Red Blood Cell Count 4.94 M/mm3 (4.30-5.90); White Blood Cell Count 6.46 K/mm3 (4.00-11.30)
[2021-08-09 00:32] LABS: Alanine Aminotransfer (ALT/SGP 17 U/L (12-78); Albumin, Blood 2.9 g/dL (3.4-5.0); Albumin/Globulin Ratio 0.9 (0.8-1.8); Alk Phos 104 U/L (50-136); Anion Gap 3 mmol/L (6-16); Aspartate Aminotrans (AST/SGOT 10 U/L (12-37); Bilirubin, Total 0.5 mg/dL (0.1-1.0); Blood Urea Nitrogen 15 mg/dL (8-24); Bun/Creatinine Ratio 11.4 (12.0-20.0); CO2, Blood 28 mmol/L (21-32); Calcium, Blood 8.4 mg/dL (8.5-10.1); Chloride, Blood 111 mmol/L (98-108); Creatinine, Blood 1.32 mg/dL (0.60-1.20); Globulin, Blood 3.2 g/dL (2.2-4.0); Glomerular Filtration Rate 54 (60-); Glucose, Blood 90 mg/dL (70-99); Potassium, Blood 3.9 mmol/L (3.5-5.5); Sodium, Blood 142 mmol/L (136-145); Total Protein, Blood 6.1 g/dL (6.4-8.2); Troponin I <0.015 ng/mL (0.000-0.040)
--- NOTE | 2021-08-09 05:46 | NUR ---
SHIFT SUMMARY; AOX3, ARRIVED TO THE FLOOR WITH MID STERNUM CHEST PAIN, SQUEEZING THAT NOTHING MADE BETTER OR WORSE. THIS WAS AFTER BEING GIVEN MORPHINE DOWN STAIRS. PAIN WAS 4/10 AND CLIMBING. GAVE 4MG OF MORPHINE WHICH SUBSIDED. VITALS ALL HOLDING, TROPOIN NEGATIVE. D-DIMER ELEVATED. NO SOB NOTED. NO OTHER COMPLAINTS. TELE RUNNING SINUS. NPO FOR POSSIBLE STRESS TEST THIS AM. CALL LIGHT IN REACH.
--- NOTE | 2021-08-09 18:15 | NUR ---
SHIFT SUMMARY PATIENT MEDICATED X1 FOR CHEST PAIN, DENIES NAUSEA, AND SHORTNESS OF BREATH. UP INDEPENDENT IN ROOM, URINAL AT BEDSIDE. CARDIOGOLGY CONSULTED ON PATIENT TODAY, PATIENT CLEARED BY CARDIOLOGY, STRESS TEST AND TROPONINS NEGATIVE. PATIENT EATING AND DRINKING WELL. PLEASANT AND COOPERATIVE WITH CARE.
--- NOTE | 2021-08-10 04:59 | NUR ---
SHIFT SUMMARY: VS WNL, AFEBRILE. TELE SINUS. CHEST PAIN REMAINS 2/10, UNCHANGED AND NO MEDICATIONS GIVEN. DOES HAVE A HORSH VOICE, OCCATIONAL COUGH. INDEPENDENT IN THE ROOM. SLEPT WELL T/O THE NIGHT. NO ACUTE CHANGES TO REPORT. CALL LIGHT IN REACH.
[2021-08-10 05:22] LABS: Hematocrit 46.3 % (37.0-53.0); Hemoglobin 15.3 g/dL (13.5-17.5); Mean Corpuscular Volume 85 fL (80-100); Mean Platelet Volume 9.6 fL (9.1-12.4); Platelet Count 203 K/mm3 (150-400); RDW Coefficient Variation 14.4 % (11.7-14.2); RDW Standard Deviation 43.9 fL (35.1-46.3); Red Blood Cell Count 5.46 M/mm3 (4.30-5.90); White Blood Cell Count 11.23 K/mm3 (4.00-11.30)
[2021-08-10 05:44] LABS: Albumin, Blood 2.9 g/dL (3.4-5.0); Albumin/Globulin Ratio 0.8 (0.8-1.8); Bilirubin, Total 0.5 mg/dL (0.1-1.0); Bun/Creatinine Ratio 17.4 (12.0-20.0); Calcium, Blood 8.9 mg/dL (8.5-10.1); Creatinine, Blood 1.32 mg/dL (0.60-1.20); Globulin, Blood 3.7 g/dL (2.2-4.0); Potassium, Blood 4.7 mmol/L (3.5-5.5); Total Protein, Blood 6.6 g/dL (6.4-8.2)
--- NOTE | 2021-08-10 15:30 | NUR ---
DISCHARGE PATIENT AMBULATED TO PRIVATE VEHICLE. PATIENT WAS ACCOMPANIED BY STAFF. DISCHARGE INSTRUCTIONS EXPLAINED TO PATIENT. PATIENT STATED UNDERSTANDING. PACKET SENT WITH PATIENT. BELONGINGS SENT WITH PATIENT. IV REMOVED WITHOUT DIFFICULTY. TELE REMOVED WITHOUT DIFFICULTY. PATIENT TO SCHEDULE FOLLOW UP APPOINTMENT.
== END 2021-08-10 15:03 | disposition home or self-care (01) ==
LOC: ER 13:49 → MEDS 13:50 → ER 21:00 → MEDS 21:03
PROVIDERS: Internal Medicine; Physician Assistant; ADMIT Hospitalist
DX: I25.700 Atherosclerosis of coronary artery bypass graft(s), unspecified, with unstable angina pectoris (principal); I10 Essential (primary) hypertension; I25.2 Old myocardial infarction; E78.5 Hyperlipidemia, unspecified; J44.9 Chronic obstructive pulmonary disease, unspecified; K21.9 Gastro-esophageal reflux disease without esophagitis; M54.9 Dorsalgia, unspecified; Z95.5 Presence of coronary angioplasty implant and graft; Z95.1 Presence of aortocoronary bypass graft; Z87.891 Personal history of nicotine dependence; Z88.5 Allergy status to narcotic agent; Z88.8 Allergy status to other drugs, medicaments and biological substances; Z20.822 Contact with and (suspected) exposure to COVID-19
CPT/HCPCS: 36415; 71046; 71275; 78452; 80053; 83880; 84484; 85025; 85027; 85379; 85610; 85651; 86140; 93005; 93010; 93017; A9270; A9500; J1650; J2270; J2785; J2930; Q9967; U0004

== ENCOUNTER 2021-10-23 12:30 | Day surgery (SDC) | payer OTHER ==
[~2021-10-23] VITALS: Ht 172.7 cm; Wt 93.5 kg
[~2021-10-23 12:30] MED LIST changes: +FLUT1DIS5 INH; +ISOMON20 PO; +ISOSORBIDE MONO60 MG PO; +METO50 PO; +MULVITA PO; +Norco 5-325 Ta1 EACH PO; +THERA-D2000 UNIT PO; +Vitamin B Comple1 EA PO
--- NOTE | 2021-10-23 13:04 | NUR ---
Ambulatory in Day Surgery History, Chart, Medications and Allergies reviewed before start of procedure.Patient confirms NPO status and agrees with scheduled surgery. Lungs clear EXCEPT DIMINISHED LLL. Patient States Post-Procedure ride home has been arranged WITH SON
--- NOTE | 2021-10-23 13:33 | NUR ---
10/23/21 1333 Mallory Ko History, Chart, Medications and Allergies reviewed before start of procedure.MONITOR INTACT WITH CONTINUOUS PULSE OXIMETRY AND INTERMITTENT BP.3-LEAD EKG REVIEWED WITH PHYSICIAN PRIOR TO START OF PROCEDURE.O2 VIA N/C INTACT THROUGHOUT SEDATION/PROCEDURE. 2% LIDOCAINE JELLY WITH 5 DROPS BALDOMERO-SYNEPHRINE 0.5% APPLIED TO BILATERAL NARES WITH COTTON TIP APPLICATOR. 2% LIDOCAINE SOLUTION SPRAYED TO OROPHARYNX USING ATOMIZATION DEVICE UNTIL GAG REFLEX GONE.
--- NOTE | 2021-10-23 15:25 | NUR ---
Patient up to Ambulate independently. Gait steady. Discharge instructions reviewed with patient. Patient verbalizes understanding. Copy given to patient to take home.Lungs clear T/O to Auscultation. Patient States Post-Procedure ride home has been arranged. Discharged via wheelchair to private car for ride home.
== END 2021-10-23 15:55 | disposition home or self-care (01) ==
LOC: ORSCMMR 12:30
PROVIDERS: Internal Medicine Critical Care Medicine
PROC: 0B9G8ZX Drainage of Left Upper Lung Lobe, Via Natural or Artificial Opening Endoscopic, Diagnostic (ICD-10-PCS; principal; 2021-10-23 14:00)
DX: J98.11 Atelectasis (principal); I25.10 Atherosclerotic heart disease of native coronary artery without angina pectoris; I25.2 Old myocardial infarction; J44.9 Chronic obstructive pulmonary disease, unspecified; E78.5 Hyperlipidemia, unspecified; I10 Essential (primary) hypertension; Z79.899 Other long term (current) drug therapy; Z87.891 Personal history of nicotine dependence; Z79.82 Long term (current) use of aspirin
CPT/HCPCS: 88108; 88312; A9270; J0171; J2001; J2250; J3010; J7120

== ENCOUNTER 2022-02-28 05:50 | Day surgery (SDC) | payer MEDICARE, OTHER ==
[~2022-02-28] VITALS: Ht 172.7 cm; Wt 98.0 kg
[~2022-02-28 05:50] MED LIST changes: +AZIT250 PO; +OMEGA FISH O PO; +POTCHL20ER PO; +RANEXA500 MG PO; +SPIRIVA RESPIMAT4 G3 INH; +TORSE20 PO; +VIT B COMPLEX PO; +VOLTAREN ARTHRI20 GM TOP
--- NOTE | 2022-02-28 10:10 | NUR ---
PATIENT AMBULATED TO BATHROOM WITHOUT DIFFICULTY. RIGHT GROIN SITE REMAINS SFT AND NONTENDER. NO HEMATOMA, NO BLEEDING. DRESSING D&I. PATIENT VERBALIZED UNDERSTANDING OF DISCHARGE INSTRUCTIONS AND PRECAUTIONS.
--- NOTE | 2022-02-28 10:40 | NUR ---
PATIENT DISCHARGED HOME. NO FURTHER QUESTIONS. IV SITE DCED WITH CATHETER INTACT. TAKEN TO CAR VIA WHEEL CAHIR BY JA HARRY RN. DRIVING
== END 2022-02-28 10:30 | disposition home or self-care (01) ==
LOC: MHTC 05:50
DX: I25.718 Atherosclerosis of autologous vein coronary artery bypass graft(s) with other forms of angina pectoris (principal); I11.0 Hypertensive heart disease with heart failure; I50.9 Heart failure, unspecified; I73.9 Peripheral vascular disease, unspecified; J44.9 Chronic obstructive pulmonary disease, unspecified; I25.2 Old myocardial infarction; I31.3 Pericardial effusion (noninflammatory); E78.5 Hyperlipidemia, unspecified; Z95.1 Presence of aortocoronary bypass graft; Z88.5 Allergy status to narcotic agent; Z88.8 Allergy status to other drugs, medicaments and biological substances
CPT/HCPCS: 93459; 99152; 99153; C1760; C1769; C1894; J1644; J2250; J3010; J7030; J7050; Q9967

== ENCOUNTER 2022-07-18 15:30 | Inpatient (IN) | payer MEDICARE, OTHER ==
[~2022-07-18] VITALS: Ht 172.7 cm; Wt 94.4 kg
[2022-07-18 16:10] LABS: BASOPHILS ABSOLUTE AUTO 0.08 K/mm3 (0.00-0.23); BASOPHILS PERCENT AUTO 1 % (0-2); EOSINOPHILS ABSOLUTE AUTO 0.33 K/mm3 (0.00-0.68); EOSINOPHILS PERCENT AUTO 6 % (0-6); Hematocrit 46.2 % (37.0-53.0); Hemoglobin 15.5 g/dL (13.5-17.5); IMMATURE GRAN ABSOLUTE AUTO 0.05 K/mm3 (0.00-0.10); IMMATURE GRAN PERCENT AUTO 1 % (0-1); LYMPHOCYTES PERCENT AUTO 20 % (21-46); MONOCYTES PERCENT AUTO 7 % (4-13); Mean Corpuscular HGB 30.5 pg (26.0-34.0); Mean Corpuscular HGB Conc 33.5 g/dL (31.5-36.5); Mean Corpuscular Volume 91 fL (80-100); Mean Platelet Volume 9.7 fL (9.1-12.4); NEUTROPHILS ABSOLUTE AUTO 3.99 K/mm3 (1.96-9.15); NEUTROPHILS PERCENT AUTO 66 % (41-73); Platelet Count 148 K/mm3 (150-400); RDW Coefficient Variation 13.5 % (11.7-14.2); RDW Standard Deviation 45.3 fL (35.1-46.3); Red Blood Cell Count 5.08 M/mm3 (4.30-5.90); White Blood Cell Count 6.05 K/mm3 (4.00-11.30)
[2022-07-18] MEDS ORDERED: METO50ER PO (17:01)
[2022-07-18 18:08] LABS: Influenza A, PCR NEGATIVE (NEGATIVE); Influenza B, PCR NEGATIVE (NEGATIVE); Resp Syncytial Virus, PCR NEGATIVE (NEGATIVE); SARS-Cov-2 (COVID-19) PCR, MMC NEGATIVE (NEGATIVE)
[2022-07-18 18:28] LABS: Albumin, Blood 3.2 g/dL (3.4-5.0); Bilirubin, Total 0.5 mg/dL (0.1-1.0); Bun/Creatinine Ratio 13.2 (12.0-20.0); Calcium, Blood 8.3 mg/dL (8.5-10.1); Creatinine, Blood 1.29 mg/dL (0.60-1.20); Globulin, Blood 3.3 g/dL (2.2-4.0); Potassium, Blood 4.3 mmol/L (3.5-5.5); Total Protein, Blood 6.5 g/dL (6.4-8.2)
[2022-07-18 20:53] LABS: CHOL/HDL RATIO 4.2; Cholesterol 146 mg/dL (50-200); HDL Cholesterol 35 mg/dL (>39); LDL/HDL RATIO 1.4; Low Density Lipoprotein Chol 48 mg/dL (0-110); Triglycerides 313 mg/dL (30-160); Very Low Density Lipoprot Chol 63 mg/dL (6-32)
--- NOTE | 2022-07-18 21:29 | NUR ---
ADMISSION: PATIENT IS RECIEVED FROM ER VIA WC. ABLE TO AMBULATE TO THE BATHROOM WITH A STEADY GAIT. REPORTING CHEST PAIN 3/10, DENIES NEED OF PAIN MED. PATIENT IS ORIENTED TO ROOM AND CALL HIGHTOWER.
[2022-07-19 05:26] LABS: BASOPHILS ABSOLUTE AUTO 0.07 K/mm3 (0.00-0.23); BASOPHILS PERCENT AUTO 1 % (0-2); EOSINOPHILS ABSOLUTE AUTO 0.33 K/mm3 (0.00-0.68); EOSINOPHILS PERCENT AUTO 5 % (0-6); Hematocrit 45.1 % (37.0-53.0); Hemoglobin 14.8 g/dL (13.5-17.5); IMMATURE GRAN ABSOLUTE AUTO 0.06 K/mm3 (0.00-0.10); IMMATURE GRAN PERCENT AUTO 1 % (0-1); LYMPHOCYTES ABSOLUTE AUTO 1.48 K/mm3 (0.84-5.20); LYMPHOCYTES PERCENT AUTO 24 % (21-46); MONOCYTES ABSOLUTE AUTO 0.45 K/mm3 (0.16-1.47); MONOCYTES PERCENT AUTO 7 % (4-13); Mean Corpuscular HGB 29.9 pg (26.0-34.0); Mean Corpuscular HGB Conc 32.8 g/dL (31.5-36.5); Mean Corpuscular Volume 91 fL (80-100); Mean Platelet Volume 9.7 fL (9.1-12.4); NEUTROPHILS ABSOLUTE AUTO 3.71 K/mm3 (1.96-9.15); NEUTROPHILS PERCENT AUTO 61 % (41-73); Platelet Count 144 K/mm3 (150-400); RDW Coefficient Variation 13.4 % (11.7-14.2); RDW Standard Deviation 44.9 fL (35.1-46.3); Red Blood Cell Count 4.95 M/mm3 (4.30-5.90)
[2022-07-19 06:14] LABS: Bun/Creatinine Ratio 15.2 (12.0-20.0); Calcium, Blood 8.4 mg/dL (8.5-10.1); Creatinine, Blood 1.25 mg/dL (0.60-1.20); Potassium, Blood 4.2 mmol/L (3.5-5.5)
--- NOTE | 2022-07-19 06:43 | NUR ---
SHIFT SUMMARY: PATIENT CONTINUES TO HAVE MILD CHEST PAIN 02/06 THROUGH THE SHIFT. DENIES NEED OF PAIN MED. AT 02/06. PATIENT DID REQUEST PAIN MED FOR 04/08, FENTANYL WAS GIVEN WITH GOOD EFFECT. TELI WAS NSR T0 SB@55 WITH A BBB. VSS, NPO FOR FIRST PART OF STRESS TEST TODAY.
--- NOTE | 2022-07-19 17:09 | NUR ---
REPORTED TO DR LIPSCOMB, TELE MONITOR REPORTED ST DEPRESSION THAT PATIENT HAS A HISTORY OFF, DR HUGHES TO ROUND ON [facility] TO DISCUSS STRESS TEST RESULTS, PATIENT HAS RELEIF FROM CHEST PAIN WHEN HE TOOK 3 NITROS WITH IN 5 MINUTES OF EACH OTHER, NO FURTHER ORDERS PRESENTLY
--- NOTE | 2022-07-20 00:54 | NUR ---
CARDIAC: PATIENT IS REPORTING CHEST PAIN 4/10, WOKE PATIENT UP FROM SLEEP. NITRO X3 GIVEN WITH FAIR EFFECT, 2/10. IV FENTANYL IS GIVEN AND EKG IS DONE. NO CHANGES ON EKG. 2L NC 02 IS APPLIED. PATIENT RATES PAIN AT 3/10 AT THIS TIME.
--- NOTE | 2022-07-20 01:54 | NUR ---
CARDIAC: EKG SHOWS NO CHANGES FROM PREVIOUS. VS REMAIN STABLE. PATIENT REPORTS CHEST PAIN IS 3/10 DR CHRISTINE IS NOTIFIED OF EVENTS, EKG RESULTS AND PAIN LEVEL. ORDER FOR 1 ADDITIONAL DOSE OF NITRO AND IV DILAUDID 1MG X1 NOW. MED WAS GIVEN WITH GOOD EFFECT. PATIENT NOW RATES PIN AT 1/10 AND IS RESTING IN BED.
--- NOTE | 2022-07-20 03:02 | NUR ---
CARDIAC: PATIENT REPORTS NO CHEST PAIN AFTER DILAUDID BUT HE IS ITCHING. CALL IS PLACED TO DR CHRISTINE.
--- NOTE | 2022-07-20 07:51 | NUR ---
SHIFT SUMMARY: ORDER WAS OBTAINED FOR BENADRYL AND MED WAS GIVEN WITH GOOD EFFECT. PATIENT REPORTS NO CHEST PAIN, ITCHING OR NAUSEA.
--- NOTE | 2022-07-20 17:05 | NUR ---
PATIENT REPORTED CHEST PAIN, MEDICATED WITH NITRO X3 AND FENTANYL, PATIENT REPORTS PAIN IS BETTER, AT THE TIME TELE MONITOR REPORTED 63 HEART RATE NSR BBB
--- NOTE | 2022-07-20 18:43 | NUR ---
ALERT AND ORIENTED, MAKES NEEDS KNOWN, INDEPEDENT IN ROOM, AMBULATED IN HALLS AND HAD ONE EPISODE OF CHEST PAIN, RESOLVED WITH NITRO AND FENTANYL, NO CHANGES ON TELEMETRY DURING THE CHEST PAIN, GOOD APPETITE, ACTIVE BT, LS CLEAR DIMINSHED BASES. NPO AT MIDNIGHT, ANGIOGRAM TOMORROW, POSSIBLY AROUND 7 AM. CALL LIGHT WITH IN REACH, WCTM
--- NOTE | 2022-07-21 07:49 | NUR ---
SHIFT SUMMARY: PATIENT IS A&OX4, REPORTED CHEST PRESSURE AT 2/10 AT START OF SHIFT AND DENIED NEED OF NITRO. PATIENT REPORTED SLEEPING WELL THROUGH THE NIGHT WITH NO CHEST PAIN. TELI REMAINED NSR WITH RATE OF 69 AND BBB AND VSS. NPO SINCE MIDNIGHT FOR ANGIOGRAM TODAY.
--- NOTE | 2022-07-21 08:33 | NUR ---
PATIENT LEFT THE ROOM AT 0828 TO CATHLAB TRANSPORTED BY LILY PERES. PATIENT WILL TRANSFER TO PCU POST ANGIOGRAM.
--- NOTE | 2022-07-21 10:44 | NUR ---
PATIENT TRANSFERRED TO PCU 1 REPORT CALLED TO LILY FIELDS. ATTEMPT TO CALL MULTIPLE TIMES BUT GOES TO VOICE MAIL.
[2022-07-21] MEDS ORDERED: TICA90TA PO (11:52)
--- NOTE | 2022-07-21 15:54 | NUR ---
DISHCARGE SUMMARY: PATIENT IN NO SIGN OF ACUTE DISTRESS, VICTORINA IS TO BASELINE CHEST PAIN, IMDUR IS ONBOARD FOR NOON DOSE. DISCHARGE INSTRUCTIONS AND FEMORAL SITE CARE WERE COMPLETELY UNDERSTOOD WITH NO QUESTIONS COMMETNS OR COCNERNS. DUE TO HISTORY VICTORINA WAS ABLE TO TEACH BACK CARE AND HAD A GREAT UNDERSTANDING OF CHRONIC ILLNESS, MANAGEMENT AND SYMPTOMS ESPECIALLY THE SIGNS AND SYMPTOMS HE EXPERIENCED. PATIENT HAS BEEN AFEBRILE, DENEIS SOB WITH EXERTION OR CHEST PAIN WITH EXERTION, VITALS STABLE FOR PATIENT. NO SIGN OF ACUTE DISTRESS, WHEELED PATIENT TO CAR WITH ALL PERSONAL DISCHARGE INSTRUCTIONS AND BELONGINGS, BRILLINTA TEACHING TAUGHT AND IMPORTANCE VICTORINA TAUGHT UNDERSTANDING, MEDICATIONS SENT BY REPAIRER SCREEN CRUSHER TO [facility], NO CONCERNS FROM VICTORINA OR THIS OPERATIONS MANAGEMENT TRAINEE AT THIS TIME.
== END 2022-07-21 15:54 | disposition home or self-care (01) | DRG 251 ==
LOC: ER 15:30 → MEDS 18:07 → PCU 07-21 10:24
PROVIDERS: Emergency Medicine; Physician Assistant; ADMIT Family Medicine
PROC: 02703ZZ Dilation of Coronary Artery, One Artery, Percutaneous Approach (ICD-10-PCS; principal; 2022-07-21)
PROC: 4A023N7 Measurement of Cardiac Sampling and Pressure, Left Heart, Percutaneous Approach (ICD-10-PCS; 2022-07-21)
PROC: B211YZZ Fluoroscopy of Multiple Coronary Arteries using Other Contrast (ICD-10-PCS; 2022-07-21)
PROC: B213YZZ Fluoroscopy of Multiple Coronary Artery Bypass Grafts using Other Contrast (ICD-10-PCS; 2022-07-21)
PROC: B218YZZ Fluoroscopy of Left Internal Mammary Bypass Graft using Other Contrast (ICD-10-PCS; 2022-07-21)
DX: I25.710 Atherosclerosis of autologous vein coronary artery bypass graft(s) with unstable angina pectoris (principal); E78.5 Hyperlipidemia, unspecified; K21.9 Gastro-esophageal reflux disease without esophagitis; J44.9 Chronic obstructive pulmonary disease, unspecified; I25.2 Old myocardial infarction; M19.90 Unspecified osteoarthritis, unspecified site; Z20.822 Contact with and (suspected) exposure to COVID-19; Z90.49 Acquired absence of other specified parts of digestive tract; Z98.890 Other specified postprocedural states; Z95.5 Presence of coronary angioplasty implant and graft; Z79.82 Long term (current) use of aspirin; Z79.899 Other long term (current) drug therapy; Z88.8 Allergy status to other drugs, medicaments and biological substances; Z88.6 Allergy status to analgesic agent; D69.6 Thrombocytopenia, unspecified; N18.30 Chronic kidney disease, stage 3 unspecified; I12.9 Hypertensive chronic kidney disease with stage 1 through stage 4 chronic kidney disease, or unspecified chronic kidney disease; Z87.891 Personal history of nicotine dependence
CPT/HCPCS: 0241U; 36415; 71046; 76937; 78452; 80048; 80053; 80061; 84484; 85025; 85347; 92920; 92978; 93005; 93010; 93017; 93459; 94640; 94760; 96372; 96375; 99152; 99153; 99285-25; A9270; A9500; C1725; C1753; C1760; C1769; C1887; C1894; G0378; J0280; J0461; J1170; J1644; J1650; J2250; J2785; J3010; J7030; Q9967

== ENCOUNTER 2023-01-15 18:21 | Inpatient (IN) | payer OTHER, MEDICARE ==
[~2023-01-15] VITALS: Ht 172.7 cm; Wt 99.8 kg
[~2023-01-15 18:21] MED LIST changes: +METO50ER PO; +TICA90TA PO
[2023-01-15 18:56] LABS: BASOPHILS ABSOLUTE AUTO 0.08 K/mm3 (0.00-0.23); BASOPHILS PERCENT AUTO 1 % (0-2); EOSINOPHILS ABSOLUTE AUTO 0.32 K/mm3 (0.00-0.68); EOSINOPHILS PERCENT AUTO 6 % (0-6); Hematocrit 41.1 % (37.0-53.0); Hemoglobin 13.8 g/dL (13.5-17.5); IMMATURE GRAN ABSOLUTE AUTO 0.05 K/mm3 (0.00-0.10); IMMATURE GRAN PERCENT AUTO 1 % (0-1); LYMPHOCYTES ABSOLUTE AUTO 1.19 K/mm3 (0.84-5.20); LYMPHOCYTES PERCENT AUTO 21 % (21-46); MONOCYTES ABSOLUTE AUTO 0.46 K/mm3 (0.16-1.47); MONOCYTES PERCENT AUTO 8 % (4-13); Mean Corpuscular HGB 31.5 pg (26.0-34.0); Mean Corpuscular HGB Conc 33.6 g/dL (31.5-36.5); Mean Corpuscular Volume 94 fL (80-100); Mean Platelet Volume 9.7 fL (9.1-12.4); NEUTROPHILS ABSOLUTE AUTO 3.67 K/mm3 (1.96-9.15); NEUTROPHILS PERCENT AUTO 64 % (41-73); Platelet Count 137 K/mm3 (150-400); RDW Coefficient Variation 14.2 % (11.7-14.2); RDW Standard Deviation 49.2 fL (35.1-46.3); Red Blood Cell Count 4.38 M/mm3 (4.30-5.90); White Blood Cell Count 5.77 K/mm3 (4.00-11.30)
[2023-01-15 19:22] LABS: Albumin, Blood 3.1 g/dL (3.4-5.0); Albumin/Globulin Ratio 0.9 (0.8-1.8); Bilirubin, Total 0.6 mg/dL (0.1-1.0); Calcium, Blood 8.7 mg/dL (8.5-10.1); Creatinine, Blood 1.43 mg/dL (0.60-1.20); Globulin, Blood 3.3 g/dL (2.2-4.0); Total Protein, Blood 6.4 g/dL (6.4-8.2)
[2023-01-15] MEDS ORDERED: nitroglycerin TD (22:05)
[2023-01-15 22:06] LABS: Thyroid Stimulating Hormone 2.04 uIU/mL (0.360-4.800)
[2023-01-16 04:43] LABS: BASOPHILS ABSOLUTE AUTO 0.06 K/mm3 (0.00-0.23); BASOPHILS PERCENT AUTO 1 % (0-2); EOSINOPHILS ABSOLUTE AUTO 0.27 K/mm3 (0.00-0.68); EOSINOPHILS PERCENT AUTO 5 % (0-6); Hematocrit 39.6 % (37.0-53.0); Hemoglobin 13.6 g/dL (13.5-17.5); IMMATURE GRAN ABSOLUTE AUTO 0.04 K/mm3 (0.00-0.10); IMMATURE GRAN PERCENT AUTO 1 % (0-1); LYMPHOCYTES ABSOLUTE AUTO 0.92 K/mm3 (0.84-5.20); LYMPHOCYTES PERCENT AUTO 18 % (21-46); MONOCYTES ABSOLUTE AUTO 0.42 K/mm3 (0.16-1.47); MONOCYTES PERCENT AUTO 8 % (4-13); Mean Corpuscular HGB 31.7 pg (26.0-34.0); Mean Corpuscular HGB Conc 34.3 g/dL (31.5-36.5); Mean Corpuscular Volume 92 fL (80-100); Mean Platelet Volume 9.4 fL (9.1-12.4); NEUTROPHILS PERCENT AUTO 66 % (41-73); Platelet Count 123 K/mm3 (150-400); RDW Coefficient Variation 14.2 % (11.7-14.2); RDW Standard Deviation 48.1 fL (35.1-46.3); Red Blood Cell Count 4.29 M/mm3 (4.30-5.90); White Blood Cell Count 5.01 K/mm3 (4.00-11.30)
[2023-01-16 05:12] LABS: Bun/Creatinine Ratio 13.5 (12.0-20.0); Calcium, Blood 8.4 mg/dL (8.5-10.1); Creatinine, Blood 1.33 mg/dL (0.60-1.20); Potassium, Blood 3.9 mmol/L (3.5-5.5)
--- NOTE | 2023-01-16 05:17 | NUR ---
RECIEVED PATIENT FROM THE ED ALERT AND ORIENTED X4, CHEST PAIN TREATED PER JAN. NPO SINCE 399 FOR PENDING STRESS TEST. IV SL AND WNL. IND IN ROOM, CONTININENT AND NO SKIN ISSUES. WILL CONT TO MONITOR.
--- NOTE | 2023-01-16 19:43 | NUR ---
SHIFT SUMMARY- PT IS ALERT AND ORIENTED X4. FIRST PART OF STRESS TEST COMPLETED TODAY. PT REPORTED AN INCREASE IN PAIN AFTER STRESS TEST PROCEDURE. TREATED PER EMAR. PT SEEMS TO BE UNCOMFORTABLE AND IN PAIN. PT EDUCATED ON IMPORTANCE OF REPORTING ANY INCREASE IN DISCOMFORT. INDEPENDENT IN THE ROOM. BED IS IN THE LOWEST POSITION WITH CALL LIGHT IN REACH
--- NOTE | 2023-01-17 03:12 | NUR ---
SHIFT SUMMARY NOC PT A/O X 4. PT ADMIT FOR C/O CP. PT HAS EXTENSIVE CARDIAC HX AND PROCEDURES. PT CARDIAC WORKUP SO FAR HAS COME BACK NEGATIVE. PT HAD PART 1/2 STRESS YESTERDAY WITH PART 2 SCHEDULED FOR 01/17/23 @ 0800. PT HAD C/O OF MILD CP AND WAS TREATED PER EMAR. PT IS ON TELE RUNNING NORMAL SINUS RHYTHM @ 74 BPM. PT HAS BEEN NPO OF 01/17/23 @ 0000 PENDING PART 2 OF STRESS TEST. PT IS CURRENTLY RESTING IN BED WITH BED IN LOWEST POSITION, AND CALL LIGHT WITHIN REACH. [facility].
--- NOTE | 2023-01-17 16:03 | NUR ---
SHIFT SUMMARY- PT RECIEVED SECOND PART OF STRESS TEST TODAY. LIGHT OIL OPERATOR DISCUSSED NEXT ACTIONS WITH PT. PLEASE SEE NOTES. CHEST PAIN WORSEN AFTER COMPLETION OF PROCEDURE. TREATED PER EMAR. REGULAR DIET AND MEDS TO BE CONTINUED AT THIS TIME. PT IS ALERT AND ORIENTEDX4, FAMILY IS AT BEDSIDE, R/A. PT IS INDEPENDENT IN THE ROOM, UNDERSTANDS LIMITATIONS, EDUCATED PT ON THE IMPORTANCE OF REPORTING ANY WORSENING OF SYMPTOMS PROMTLY. PT STATED HE UNDERSTOOD. BED IS IN THE LOWEST POSITION WITH THE CALL LIGHT IN REACH.
--- NOTE | 2023-01-18 05:50 | NUR ---
INITIALLY, PATIENT WAS QUITE UNCOMFORTABLE WITH AN 8/10 SQUEEZING SENSATION MID STERNALLY. NITROPATCH WAS NOT SUPPOSED TO BE REMOVED UNTIL 2200 WHEN THE IMDUR COULD BE GIVEN. DURING THIS TIME, THE TELE WIRE SPOOLER CALLED SOME DETECTED NEW ST DEPRESSION TO OUR ATTENTION. . HOSPITALIST WAS NOTIFIED AND STAT EKG WAS ORDERED. THIS WAS MUCH MOR SIMILAR TO THE EKG FROM THE PREVIOUS DAY. 4MG MORPHINE WAS GIVEN ONCE TO THE PATIENT AFTER LIMITED SUCCESS FROM THE IMDUR, AND PATIENT WAS FINALLY ABLE TO HAVE A GOOD NIGHT'S REST. JAVASCRIPT FRONT END DEVELOPER PLANNED FOR THURSDAY.
--- NOTE | 2023-01-18 18:18 | NUR ---
SHIFT SUMMARY- PT IS ALERT AND ORIENTED X 4. 2 PRN GIVEN FOR CHEST PAIN TODAY. SEE EMAR. PT HAS REQUESTED QUIET TIME TO NAP. HE STATED THAT HE DID NOT GET MUCH SLEEP LAST NIGHT. CATH PROCEDURE PLANNED FOR TOMORROW. PT SHOULD BE NPO AT MIDNIGHT. INDEPENDENT IN THE ROOM. NO COMPLAINTS OF ANY OTHER BODY SYSTEM ISSUES. LAST BM 01/17/23. BED IS IN LOWEST POSITION WITH CALL LIGHT IN REACH . PAIN IS AT A 1/10. PATIENT SITTING UP EATING DINNER.
--- NOTE | 2023-01-19 15:47 | NUR ---
PT TAKEN DOWN TO MEMBERSHIP CORRESPONDENT AT 1530. WILL CALL [facility] TO GIVE REPORT. BELONGINGS DEBRA BE TAKEN DOWN BY COUGAR HUNTER AND MYSELF.
--- NOTE | 2023-01-19 18:58 | NUR ---
ASSUMED CARE: PT EMERGENTY TRANSFERRED TO ICU 12 FOR NITRO GTT PER DR MEEK. PT STATES CP IS 5/10. STARTED AT 5MG/MIN, INCREASED TO 10 AND THEN AGAIN TO 15MG/MIN. NO RELIEF OF YET. NSR AT 89 CURRENTLY. SATTING LOW 90S ON TELE, 2L O2 IN PLACE FOR COMFORT. PT STATES CP NOW 3/10
--- NOTE | 2023-01-19 21:34 | NUR ---
ASSUMED CARE ASSUMED CARE AT 1900. BEDSIDE REPORT RECEIVED. DR MEEK AT BEDSIDE DURING REPORT. VERBAL ORDER GIVEN TO GIVE MORNING METOPROLOL DOSE NOW, AND OKAY TO GIVE LATE DOSES OF PROTONIX AND IMDUR. NITRO GTT INFUSING. SEE FLOWSHEET FOR TITRATIONS. R GROIN SITE W/O BRUISING OR SWELLING. MINIMAL BLEEDING NOTED ON ACCESS SITE. PUCTURE SITE ABOVE ACCESS SITE OOZING. TEGADERM AND SANDBAG APPLIED. PT SUPINE IN BED AND EDUCATED ON KEEPING R LEG STRAIGHT AND NOT LIFTING HEAD. PT VERBALIZED UNDERSTANDING. VSS. 2L NC FOR COMFORT. SR W/ BBB. RATE 90'S. SBP 120-140. MORPHINE GIVEN D/T CHEST PAIN OF 4/10. AFTER ADMINISTRATION PT REPORTS PAIN 2/10. CALL LIGHT IN REACH
--- NOTE | 2023-01-20 02:49 | NUR ---
CHEST PAIN PT CALLED APPROX 0130 STATING HE HAD CHEST PAIN 5/10. NITRO GTT INFUSING AT 50MCG/MIN. BP SOFT. NITRO TURNED DOWN TO 40MCG/MIN AND MEDICATED PT WITH MORPHINE. PT REPORTED PAIN DOWN TO 1/10 AT REASSESSMENT.
[2023-01-20 03:22] LABS: BASOPHILS ABSOLUTE AUTO 0.05 K/mm3 (0.00-0.23); BASOPHILS PERCENT AUTO 1 % (0-2); EOSINOPHILS ABSOLUTE AUTO 0.11 K/mm3 (0.00-0.68); EOSINOPHILS PERCENT AUTO 1 % (0-6); Hematocrit 40.2 % (37.0-53.0); Hemoglobin 13.8 g/dL (13.5-17.5); IMMATURE GRAN ABSOLUTE AUTO 0.07 K/mm3 (0.00-0.10); IMMATURE GRAN PERCENT AUTO 1 % (0-1); LYMPHOCYTES ABSOLUTE AUTO 0.51 K/mm3 (0.84-5.20); LYMPHOCYTES PERCENT AUTO 5 % (21-46); MONOCYTES ABSOLUTE AUTO 0.56 K/mm3 (0.16-1.47); MONOCYTES PERCENT AUTO 6 % (4-13); Mean Corpuscular HGB 31.4 pg (26.0-34.0); Mean Corpuscular HGB Conc 34.3 g/dL (31.5-36.5); Mean Corpuscular Volume 91 fL (80-100); Mean Platelet Volume 9.3 fL (9.1-12.4); NEUTROPHILS ABSOLUTE AUTO 8.28 K/mm3 (1.96-9.15); NEUTROPHILS PERCENT AUTO 87 % (41-73); Platelet Count 139 K/mm3 (150-400); RDW Coefficient Variation 13.9 % (11.7-14.2); White Blood Cell Count 9.58 K/mm3 (4.00-11.30)
[2023-01-20 03:39] LABS: Bun/Creatinine Ratio 18.5 (12.0-20.0); Calcium, Blood 8.3 mg/dL (8.5-10.1); Creatinine, Blood 1.3 mg/dL (0.60-1.20); Potassium, Blood 4.2 mmol/L (3.5-5.5)
--- NOTE | 2023-01-20 06:01 | NUR ---
SHIFT SUMMARY NO ACUTE EVENTS T/O NIGHT. PT C/O CHEST PAIN 12/09 THIS AM. NITRO GTT INFUSING. SEE FLOWSHEET FOR TITRATIONS. MEDICATED WITH PAIN MEDS X 2 T/O SHIFT. VSS, SOFT BP AT TIMES. SR, W/ BUNDLE BRANCH BLOCK. RATE 70-80'S. ON 2L NC. R GROIN SITE SOFT, W/O BRUISING OR SIGNS OF HEMATOMA. PT USES URINAL IND. WILL REPORT OFF TO ONCOMING NURSE.
--- NOTE | 2023-01-20 09:00 | NUR ---
Assumed care for pt at 0700. Currently on Nitro gtt 40 mcg/min. He is A&Ox4, GCS 15, on 2 lpm o2 via NC. R groin site is soft, there is some sanginous fluid around the wound from a puncture site superior to the primary site used for the cardiac intervention yesterday. 20g R upper arm, the 20g left forearm infiltrated and was removed.
== END 2023-01-20 18:24 | disposition home or self-care (01) | DRG 251 ==
LOC: ER 18:21 → MEDS 18:22 → PCU 01-17 14:24 → ICUW 01-17 14:24 → MEDS 01-17 14:24 → PCU 01-19 15:39 → ICUW 01-19 18:38
PROVIDERS: Emergency Medicine; Internal Medicine Cardiovascular Disease; ADMIT Student in an Organized Health Care Education/Training Program
PROC: 02703ZZ Dilation of Coronary Artery, One Artery, Percutaneous Approach (ICD-10-PCS; principal; 2023-01-19)
PROC: B24BZZ3 Ultrasonography of Heart with Aorta, Intravascular (ICD-10-PCS; 2023-01-19)
PROC: B218YZZ Fluoroscopy of Left Internal Mammary Bypass Graft using Other Contrast (ICD-10-PCS; 2023-01-19)
PROC: B211YZZ Fluoroscopy of Multiple Coronary Arteries using Other Contrast (ICD-10-PCS; 2023-01-19)
DX: T82.855A Stenosis of coronary artery stent, initial encounter (principal); I25.710 Atherosclerosis of autologous vein coronary artery bypass graft(s) with unstable angina pectoris; I73.9 Peripheral vascular disease, unspecified; E78.5 Hyperlipidemia, unspecified; J44.9 Chronic obstructive pulmonary disease, unspecified; D69.6 Thrombocytopenia, unspecified; I12.9 Hypertensive chronic kidney disease with stage 1 through stage 4 chronic kidney disease, or unspecified chronic kidney disease; N18.30 Chronic kidney disease, stage 3 unspecified; K21.9 Gastro-esophageal reflux disease without esophagitis; I25.2 Old myocardial infarction; Z95.1 Presence of aortocoronary bypass graft; Z87.891 Personal history of nicotine dependence; Z88.1 Allergy status to other antibiotic agents; Z88.5 Allergy status to narcotic agent; Z88.6 Allergy status to analgesic agent; Z79.899 Other long term (current) drug therapy; Y83.1 Surgical operation with implant of artificial internal device as the cause of abnormal reaction of the patient, or of later complication, without mention of misadventure at the time of the procedure
CPT/HCPCS: 36415; 71045; 76937; 78452; 80048; 80053; 83735; 83880; 84443; 84484; 85025; 85347; 92920; 92978; 93005; 93010; 93017; 93308; 93321; 93455; 94640; 94664; 94760; 94762; 99152; 99153; 99285-25; A9270; A9500; C1725; C1753; C1760; C1769; C1887; C1894; G0378; J0706; J1644; J1650; J2250; J2270; J2785; J3010; J7030; J7040; J7050; Q9967

== ENCOUNTER 2023-02-06 08:47 | Emergency (ER) | payer MEDICARE, OTHER ==
[~2023-02-06] VITALS: Ht 172.7 cm; Wt 95.2 kg
[~2023-02-06 08:47] MED LIST changes: +nitroglycerin TD
[2023-02-06 09:13] LABS: BASOPHILS ABSOLUTE AUTO 0.06 K/mm3 (0.00-0.23); BASOPHILS PERCENT AUTO 1 % (0-2); EOSINOPHILS ABSOLUTE AUTO 0.34 K/mm3 (0.00-0.68); EOSINOPHILS PERCENT AUTO 5 % (0-6); Hematocrit 42.7 % (37.0-53.0); Hemoglobin 14.6 g/dL (13.5-17.5); IMMATURE GRAN ABSOLUTE AUTO 0.05 K/mm3 (0.00-0.10); IMMATURE GRAN PERCENT AUTO 1 % (0-1); LYMPHOCYTES ABSOLUTE AUTO 0.83 K/mm3 (0.84-5.20); LYMPHOCYTES PERCENT AUTO 12 % (21-46); MONOCYTES ABSOLUTE AUTO 0.56 K/mm3 (0.16-1.47); MONOCYTES PERCENT AUTO 8 % (4-13); Mean Corpuscular HGB 31.4 pg (26.0-34.0); Mean Corpuscular HGB Conc 34.2 g/dL (31.5-36.5); Mean Corpuscular Volume 92 fL (80-100); Mean Platelet Volume 9.7 fL (9.1-12.4); NEUTROPHILS PERCENT AUTO 73 % (41-73); Platelet Count 145 K/mm3 (150-400); RDW Coefficient Variation 14.2 % (11.7-14.2); RDW Standard Deviation 47.6 fL (35.1-46.3); Red Blood Cell Count 4.65 M/mm3 (4.30-5.90); White Blood Cell Count 6.84 K/mm3 (4.00-11.30)
[2023-02-06 09:35] LABS: Albumin, Blood 3.3 g/dL (3.4-5.0); Bun/Creatinine Ratio 12.6 (12.0-20.0); Calcium, Blood 8.5 mg/dL (8.5-10.1); Creatinine, Blood 1.43 mg/dL (0.60-1.20); Globulin, Blood 3.4 g/dL (2.2-4.0); Potassium, Blood 4.2 mmol/L (3.5-5.5); Total Protein, Blood 6.7 g/dL (6.4-8.2)
[2023-02-06] MEDS ORDERED: BETA.05TCA TOP (11:51)
== END 2023-02-06 12:05 | disposition home or self-care (01) ==
LOC: ER 08:47
PROVIDERS: Physician Assistant
DX: R07.9 Chest pain, unspecified (principal); L03.116 Cellulitis of left lower limb; L03.115 Cellulitis of right lower limb; I25.10 Atherosclerotic heart disease of native coronary artery without angina pectoris; I10 Essential (primary) hypertension; E78.5 Hyperlipidemia, unspecified; Z87.891 Personal history of nicotine dependence; Z88.5 Allergy status to narcotic agent; Z88.1 Allergy status to other antibiotic agents; Z79.899 Other long term (current) drug therapy; Z79.82 Long term (current) use of aspirin; Z95.5 Presence of coronary angioplasty implant and graft; Z95.1 Presence of aortocoronary bypass graft
CPT/HCPCS: 71046; 80053; 83690; 83880; 84484; 85025; 93005; 93010; 99285-25; A9270

== ENCOUNTER 2023-09-18 16:01 | Emergency (ER) | payer MEDICARE, OTHER ==
[~2023-09-18] VITALS: Ht 177.8 cm; Wt 88.5 kg
[~2023-09-18 16:01] MED LIST changes: +Amlodipine Bes2.5 MG PO; +B-121000 MC3 PO; +BETA.05TCA TOP; +FISH OIL 1,2001 EAC7 PO; +VITAMIN D5000 UNIT PO; +[UNRECOGNIZED DRUG - OTHER] PO
[2023-09-18 16:31] LABS: BASOPHILS ABSOLUTE AUTO 0.05 K/mm3 (0.00-0.23); BASOPHILS PERCENT AUTO 1 % (0-2); EOSINOPHILS ABSOLUTE AUTO 0.28 K/mm3 (0.00-0.68); EOSINOPHILS PERCENT AUTO 5 % (0-6); Hematocrit 38.6 % (37.0-53.0); Hemoglobin 13.1 g/dL (13.5-17.5); IMMATURE GRAN ABSOLUTE AUTO 0.03 K/mm3 (0.00-0.10); IMMATURE GRAN PERCENT AUTO 1 % (0-1); LYMPHOCYTES PERCENT AUTO 15 % (21-46); MONOCYTES PERCENT AUTO 7 % (4-13); Mean Corpuscular HGB 31.3 pg (26.0-34.0); Mean Corpuscular HGB Conc 33.9 g/dL (31.5-36.5); Mean Corpuscular Volume 92 fL (80-100); Mean Platelet Volume 9.6 fL (9.1-12.4); NEUTROPHILS ABSOLUTE AUTO 3.93 K/mm3 (1.96-9.15); NEUTROPHILS PERCENT AUTO 72 % (41-73); Platelet Count 131 K/mm3 (150-400); RDW Coefficient Variation 13.5 % (11.7-14.2); RDW Standard Deviation 45.2 fL (35.1-46.3); Red Blood Cell Count 4.19 M/mm3 (4.30-5.90); White Blood Cell Count 5.49 K/mm3 (4.00-11.30)
[2023-09-18 16:58] LABS: Albumin, Blood 3.3 g/dL (3.4-5.0); Bilirubin, Total 0.7 mg/dL (0.1-1.0); Calcium, Blood 8.8 mg/dL (8.5-10.1); Creatinine, Blood 1.47 mg/dL (0.60-1.20); Globulin, Blood 3.2 g/dL (2.2-4.0); Potassium, Blood 4.2 mmol/L (3.5-5.5); Total Protein, Blood 6.5 g/dL (6.4-8.2)
[2023-09-18 18:53] VITALS: BP 124/69
== END 2023-09-18 19:10 | disposition home or self-care (01) ==
LOC: ER 16:01
PROVIDERS: Emergency Medicine
DX: R07.89 Other chest pain (principal); I10 Essential (primary) hypertension; I25.2 Old myocardial infarction; I25.10 Atherosclerotic heart disease of native coronary artery without angina pectoris; E78.5 Hyperlipidemia, unspecified; Z87.891 Personal history of nicotine dependence; Z88.5 Allergy status to narcotic agent; Z88.8 Allergy status to other drugs, medicaments and biological substances; Z79.899 Other long term (current) drug therapy; Z79.82 Long term (current) use of aspirin; Z79.02 Long term (current) use of antithrombotics/antiplatelets; Z79.51 Long term (current) use of inhaled steroids
CPT/HCPCS: 71045; 80053; 84484; 85025; 93005; 93010; 99285-25

== ENCOUNTER 2023-12-28 07:19 | Emergency (ER) | payer MEDICARE, OTHER ==
[~2023-12-28] VITALS: Ht 175.3 cm; Wt 90.7 kg
[2023-12-28] MEDS ORDERED: AMLO10 PO (08:01)
[2023-12-28] MEDS ORDERED: Nitroglycerin1 EAC3 TOP (08:05)
[2023-12-28] MEDS ORDERED: BETA.05TCA TOP (08:06)
[2023-12-28] MEDS ORDERED: LIDO700A20 TOP (08:07)
[2023-12-28 08:13] LABS: BASOPHILS ABSOLUTE AUTO 0.06 K/mm3 (0.00-0.23); BASOPHILS PERCENT AUTO 1 % (0-2); EOSINOPHILS ABSOLUTE AUTO 0.25 K/mm3 (0.00-0.68); EOSINOPHILS PERCENT AUTO 4 % (0-6); Hematocrit 41.4 % (37.0-53.0); Hemoglobin 14.2 g/dL (13.5-17.5); IMMATURE GRAN ABSOLUTE AUTO 0.05 K/mm3 (0.00-0.10); IMMATURE GRAN PERCENT AUTO 1 % (0-1); LYMPHOCYTES ABSOLUTE AUTO 0.81 K/mm3 (0.84-5.20); LYMPHOCYTES PERCENT AUTO 12 % (21-46); MONOCYTES ABSOLUTE AUTO 0.48 K/mm3 (0.16-1.47); MONOCYTES PERCENT AUTO 7 % (4-13); Mean Corpuscular HGB 30.5 pg (26.0-34.0); Mean Corpuscular HGB Conc 34.3 g/dL (31.5-36.5); Mean Corpuscular Volume 89 fL (80-100); Mean Platelet Volume 9.2 fL (9.1-12.4); NEUTROPHILS ABSOLUTE AUTO 5.09 K/mm3 (1.96-9.15); NEUTROPHILS PERCENT AUTO 76 % (41-73); Platelet Count 151 K/mm3 (150-400); RDW Standard Deviation 41.8 fL (35.1-46.3); Red Blood Cell Count 4.66 M/mm3 (4.30-5.90); White Blood Cell Count 6.74 K/mm3 (4.00-11.30)
[2023-12-28 08:23] LABS: Albumin/Globulin Ratio 0.9 (0.8-1.8); Bilirubin, Total 0.7 mg/dL (0.1-1.0); Bun/Creatinine Ratio 18.8 (12.0-20.0); Calcium, Blood 8.6 mg/dL (8.5-10.1); Creatinine, Blood 1.38 mg/dL (0.60-1.20); Globulin, Blood 3.5 g/dL (2.2-4.0); Potassium, Blood 3.9 mmol/L (3.5-5.5); Total Protein, Blood 6.5 g/dL (6.4-8.2)
[2023-12-28 10:15] VITALS: BP 118/74
== END 2023-12-28 10:44 | disposition home or self-care (01) ==
LOC: ER 07:19
PROVIDERS: Emergency Medicine
DX: R07.89 Other chest pain (principal); Z87.891 Personal history of nicotine dependence; I10 Essential (primary) hypertension; I25.10 Atherosclerotic heart disease of native coronary artery without angina pectoris; I25.2 Old myocardial infarction; E78.5 Hyperlipidemia, unspecified; Z79.82 Long term (current) use of aspirin; Z79.51 Long term (current) use of inhaled steroids; Z79.899 Other long term (current) drug therapy; Z88.1 Allergy status to other antibiotic agents; Z88.5 Allergy status to narcotic agent
CPT/HCPCS: 71046; 80053; 83690; 84484; 85025; 93005; 93010; 99285-25

== ENCOUNTER → 2024-06-08 | Outpatient (CLI) | payer MEDICARE, OTHER ==
[~2024-06-08] MED LIST changes: +AMLO10 PO; +CEFD300 PO; +LIDO700A20 TOP; +Nitroglycerin1 EAC3 TOP
[2024-06-08 09:54] LABS: Microalbumin, Urine Quant. 8.51 mg/L (0.000-20.000); Protein, Urine Quantitative 14.2 mg/dL (0.0-11.9)
== END | disposition home or self-care (01) ==
LOC: LAB SHORT 05:40 → LAB 05:40 → LAB FUT 06-06 13:10
PROVIDERS: Internal Medicine Nephrology
DX: N18.30 Chronic kidney disease, stage 3 unspecified (principal); D63.1 Anemia in chronic kidney disease; D50.9 Iron deficiency anemia, unspecified; N25.81 Secondary hyperparathyroidism of renal origin; D52.8 Other folate deficiency anemias; E55.9 Vitamin D deficiency, unspecified; E78.00 Pure hypercholesterolemia, unspecified; D51.8 Other vitamin B12 deficiency anemias; R94.6 Abnormal results of thyroid function studies; R94.5 Abnormal results of liver function studies; R76.9 Abnormal immunological finding in serum, unspecified
CPT/HCPCS: 81050; 82043; 82570; 84156

== ENCOUNTER 2024-08-25 08:28 | Day surgery (SDC) | payer MEDICARE, OTHER ==
[~2024-08-25] VITALS: Ht 172.7 cm; Wt 96.4 kg
[~2024-08-25 08:28] MED LIST changes: +Balanced Salt Epinephrine Irrigation Solution 500 mL IR SCH; +Lidocaine HCl/Pf 1% 5 ML VIAL XX SCH; +Moxifloxacin HCL 0.5 MG/0.1 ML 0.4MLSYR RIGHTEYE SCH; +NS 500 ML IV ONE; +PHENYLEPHRINE\\TROPICAMIDE\\TETRACAINE OPHTHALMIC DILATING SOLN RIGHTEYE PRN; +Povidone-Iodine 450 DROP/30 ML Solution ONE; +Povidone-Iodine 450 DROP/30 ML Solution RIGHTEYE SCH; +Tetracaine HCl/Pf 0.5% Opth Soln 4 ml ONE; +Triamcinolone Inj Susp 40 MG / ML 1ML Vial INJ SCH; +Triamcinolone Inj Susp 40 MG / ML 1ML Vial ONE
--- NOTE | 2024-08-25 09:03 | NUR ---
08/25/24 0903 Aditi Frederick PER PT A COUPLE WEEKS AGO HE HAD A FLUTTERING FEELING IN HIS CHEST OFTEN SO HE HAS BEEN WEARING A HEART MONITOR UNTIL YESTERDAY. HE STATED HE HAS NOT HAD THAT FLUTTERING FEELING IN HIS CHEST IN A COUPLE WEEKS. DENIES CURRENT FEELING OF FLUTTERING, CHEST PAIN, SHORTNESS OF BREATH. PER PATIENT DR BETTS IS AWARE OF THIS.
[2024-08-25] MEDS ORDERED: NS 500 ML IV ONE (09:08)
[2024-08-25] MEDS ORDERED: LOSARTAN (09:11)
[2024-08-25] MEDS ORDERED: B COMPLEX VITAMINS (09:13)
[2024-08-25] MEDS ORDERED: VITAMIN D350 MC3 PO (09:15)
[2024-08-25] MEDS ORDERED: Midazolam HCl 1MG / ML 2ML Vial ONE (09:37)
[2024-08-25 10:06] VITALS: BP 121/72
[2024-08-25] MEDS ORDERED: LOSA25 PO (10:32)
== END 2024-08-25 10:13 | disposition home or self-care (01) ==
LOC: ORSCSDS 08:28
PROVIDERS: Ophthalmology
PROC: 08RJ3JZ Replacement of Right Lens with Synthetic Substitute, Percutaneous Approach (ICD-10-PCS; principal; 2024-08-25 10:00)
DX: H25.811 Combined forms of age-related cataract, right eye (principal); I25.10 Atherosclerotic heart disease of native coronary artery without angina pectoris; I21.9 Acute myocardial infarction, unspecified; Z87.891 Personal history of nicotine dependence; I12.9 Hypertensive chronic kidney disease with stage 1 through stage 4 chronic kidney disease, or unspecified chronic kidney disease; N18.9 Chronic kidney disease, unspecified; E66.9 Obesity, unspecified; Z68.32 Body mass index [BMI] 32.0-32.9, adult; Z79.82 Long term (current) use of aspirin; Z79.899 Other long term (current) drug therapy
CPT/HCPCS: J2250; J3301; J7040; V2632

== ENCOUNTER 2024-09-01 08:30 | Day surgery (SDC) | payer MEDICARE, OTHER ==
[~2024-09-01] VITALS: Ht 172.7 cm; Wt 97.2 kg
[~2024-09-01 08:30] MED LIST changes: +B COMPLEX VITAMINS; +LOSA25 PO; +LOSARTAN; +Moxifloxacin HCL 0.5 MG/0.1 ML 0.4MLSYR LEFTEYE SCH; -Moxifloxacin HCL 0.5 MG/0.1 ML 0.4MLSYR RIGHTEYE SCH; +PHENYLEPHRINE\\TROPICAMIDE\\TETRACAINE OPHTHALMIC DILATING SOLN LEFTEYE PRN; -PHENYLEPHRINE\\TROPICAMIDE\\TETRACAINE OPHTHALMIC DILATING SOLN RIGHTEYE PRN; +Povidone-Iodine 450 DROP/30 ML Solution LEFTEYE SCH; -Povidone-Iodine 450 DROP/30 ML Solution RIGHTEYE SCH; +VITAMIN D350 MC3 PO
[2024-09-01] MEDS ORDERED: NS 500 ML IV ONE ×2 (09:29→09:31)
[2024-09-01] MEDS ORDERED: Midazolam HCl 1MG / ML 2ML Vial ONE (09:59)
[2024-09-01 10:22] VITALS: BP 119/71
--- NOTE | 2024-09-01 10:36 | NUR ---
09/01/24 1036 Zoie Og PT HAS NO PAIN, DRINKING COFFEE WITHOUT N/V, AMBULATES WELL TO CAR WHERE DROVE HOME
== END 2024-09-01 10:31 | disposition home or self-care (01) ==
LOC: ORSCSDS 08:30
PROVIDERS: Ophthalmology
PROC: 08RK3JZ Replacement of Left Lens with Synthetic Substitute, Percutaneous Approach (ICD-10-PCS; principal; 2024-09-01 10:00)
DX: H25.812 Combined forms of age-related cataract, left eye (principal); Z96.1 Presence of intraocular lens; I12.9 Hypertensive chronic kidney disease with stage 1 through stage 4 chronic kidney disease, or unspecified chronic kidney disease; N18.9 Chronic kidney disease, unspecified; J44.9 Chronic obstructive pulmonary disease, unspecified; I25.10 Atherosclerotic heart disease of native coronary artery without angina pectoris; I25.2 Old myocardial infarction; E66.9 Obesity, unspecified; Z68.32 Body mass index [BMI] 32.0-32.9, adult; Z87.891 Personal history of nicotine dependence; Z79.82 Long term (current) use of aspirin; Z79.899 Other long term (current) drug therapy
CPT/HCPCS: J2250; J3301; J7040; V2632

== ENCOUNTER 2025-02-14 07:12 | Emergency (ER) | payer MEDICARE, OTHER ==
[~2025-02-14] VITALS: Ht 180.3 cm; Wt 95.2 kg
[~2025-02-14 07:12] MED LIST changes: -Balanced Salt Epinephrine Irrigation Solution 500 mL IR SCH; -Lidocaine HCl/Pf 1% 5 ML VIAL XX SCH; -Moxifloxacin HCL 0.5 MG/0.1 ML 0.4MLSYR LEFTEYE SCH; -NS 500 ML IV ONE; -PHENYLEPHRINE\\TROPICAMIDE\\TETRACAINE OPHTHALMIC DILATING SOLN LEFTEYE PRN; -Povidone-Iodine 450 DROP/30 ML Solution LEFTEYE SCH; -Povidone-Iodine 450 DROP/30 ML Solution ONE; -Tetracaine HCl/Pf 0.5% Opth Soln 4 ml ONE; -Triamcinolone Inj Susp 40 MG / ML 1ML Vial INJ SCH; -Triamcinolone Inj Susp 40 MG / ML 1ML Vial ONE
[2025-02-14] MEDS ORDERED: ALBU90OI (07:36)
[2025-02-14] MEDS ORDERED: ASPI81CH PO (07:37)
[2025-02-14] MEDS ORDERED: LIDO700A20 (07:38)
[2025-02-14] MEDS ORDERED: ISOMON20 PO (07:38)
[2025-02-14] MEDS ORDERED: NITR.4SL (07:38)
[2025-02-14] MEDS ORDERED: WIXELA 250-501 EAC1 (07:39)
[2025-02-14] MEDS ORDERED: RANEXA1000 M1 PO (07:39)
[2025-02-14] MEDS ORDERED: TIOT18 (07:39)
[2025-02-14] MEDS ORDERED: TAMS.4ER PO (07:39)
[2025-02-14 07:48] LABS: BASOPHILS ABSOLUTE AUTO 0.08 K/mm3 (0.00-0.23); BASOPHILS PERCENT AUTO 1 % (0-2); EOSINOPHILS PERCENT AUTO 5 % (0-6); Hematocrit 41.2 % (37.0-53.0); Hemoglobin 14.3 g/dL (13.5-17.5); IMMATURE GRAN ABSOLUTE AUTO 0.04 K/mm3 (0.00-0.10); IMMATURE GRAN PERCENT AUTO 1 % (0-1); LYMPHOCYTES ABSOLUTE AUTO 0.78 K/mm3 (0.84-5.20); LYMPHOCYTES PERCENT AUTO 12 % (21-46); MONOCYTES ABSOLUTE AUTO 0.48 K/mm3 (0.16-1.47); MONOCYTES PERCENT AUTO 7 % (4-13); Mean Corpuscular HGB 31.3 pg (26.0-34.0); Mean Corpuscular HGB Conc 34.7 g/dL (31.5-36.5); Mean Corpuscular Volume 90 fL (80-100); Mean Platelet Volume 9.4 fL (9.1-12.4); NEUTROPHILS PERCENT AUTO 74 % (41-73); Platelet Count 143 K/mm3 (150-400); RDW Standard Deviation 42.5 fL (35.1-46.3); Red Blood Cell Count 4.57 M/mm3 (4.30-5.90); White Blood Cell Count 6.58 K/mm3 (4.00-11.30)
[2025-02-14 08:03] LABS: Albumin, Blood 3.1 g/dL (3.4-5.0); Albumin/Globulin Ratio 1.1 (0.8-1.8); Bilirubin, Total 0.8 mg/dL (0.1-1.0); Bun/Creatinine Ratio 11.8 (12.0-20.0); Calcium, Blood 8.2 mg/dL (8.5-10.1); Creatinine, Blood 1.69 mg/dL (0.60-1.20); Globulin, Blood 2.9 g/dL (2.2-4.0); Potassium, Blood 4.1 mmol/L (3.5-5.5)
[2025-02-14] MEDS ORDERED: NS 1,000 ML IV SCH ×2 (08:05→10:20)
[2025-02-14 11:45] VITALS: BP 110/71
== END 2025-02-14 11:52 | disposition home or self-care (01) ==
LOC: ER 07:12
PROVIDERS: Student in an Organized Health Care Education/Training Program
DX: R55 Syncope and collapse (principal); I25.2 Old myocardial infarction; I25.10 Atherosclerotic heart disease of native coronary artery without angina pectoris; E78.5 Hyperlipidemia, unspecified; I45.10 Unspecified right bundle-branch block; K21.9 Gastro-esophageal reflux disease without esophagitis; I12.9 Hypertensive chronic kidney disease with stage 1 through stage 4 chronic kidney disease, or unspecified chronic kidney disease; N18.30 Chronic kidney disease, stage 3 unspecified; I73.9 Peripheral vascular disease, unspecified; Z87.891 Personal history of nicotine dependence; Z95.820 Peripheral vascular angioplasty status with implants and grafts; Z88.1 Allergy status to other antibiotic agents; Z95.5 Presence of coronary angioplasty implant and graft; Z95.1 Presence of aortocoronary bypass graft; Z88.5 Allergy status to narcotic agent; Z79.899 Other long term (current) drug therapy; Z79.82 Long term (current) use of aspirin
CPT/HCPCS: 71046; 80053; 84484; 85025; 93005; 93010; 99285-25; J7030

== ENCOUNTER 2025-10-25 08:30 | Emergency (ER) | payer OTHER ==
[~2025-10-25] VITALS: Ht 172.7 cm; Wt 102.1 kg
[~2025-10-25 08:30] MED LIST changes: +ASPI81CH PO; +CODACE30 PO; +DIPH25 PO; +ELIQUIS5 M2 PO; +FURO20 PO; +Imdur-ER60 MG PO; +LIDO700A20; +NITR.4SL PO; +POTA10T PO; +RANEXA1000 M1 PO; +TAMS.4ER PO; +TIOT18; +WIXELA 250-501 EAC1 INH
[2025-10-25 08:59] LABS: BASOPHILS ABSOLUTE AUTO 0.07 K/mm3 (0.00-0.23); BASOPHILS PERCENT AUTO 1 % (0-2); EOSINOPHILS ABSOLUTE AUTO 0.27 K/mm3 (0.00-0.68); EOSINOPHILS PERCENT AUTO 3 % (0-6); Hematocrit 46.5 % (37.0-53.0); Hemoglobin 15.7 g/dL (13.5-17.5); IMMATURE GRAN ABSOLUTE AUTO 0.08 K/mm3 (0.00-0.10); IMMATURE GRAN PERCENT AUTO 1 % (0-1); LYMPHOCYTES ABSOLUTE AUTO 0.83 K/mm3 (0.84-5.20); LYMPHOCYTES PERCENT AUTO 11 % (21-46); MONOCYTES ABSOLUTE AUTO 0.50 K/mm3 (0.16-1.47); MONOCYTES PERCENT AUTO 6 % (4-13); Mean Corpuscular HGB Conc 33.8 g/dL (31.5-36.5); Mean Corpuscular Volume 89 fL (80-100); NEUTROPHILS ABSOLUTE AUTO 6.17 K/mm3 (1.96-9.15); NEUTROPHILS PERCENT AUTO 78 % (41-73); NRBC ABSOLUTE 0.00 K/mm3 (0.00-0.02); NRBC Auto 0.0 /100 WBC (0.0-0.2); Platelet Count 178 K/mm3 (150-400); RDW Coefficient Variation 13.5 % (11.7-14.2); RDW Standard Deviation 43.7 fL (35.1-46.3)
[2025-10-25 09:10] LABS: Alanine Aminotransfer (ALT/SGP 31.0 U/L (12-78); Albumin, Blood 3.2 g/dL (3.4-5.0); Albumin/Globulin Ratio 0.8 (0.8-1.8); Anion Gap 8.0 mmol/L (3-11); Aspartate Aminotrans (AST/SGOT 17.0 U/L (12-37); Bilirubin, Total 1.0 mg/dL (0.1-1.0); Blood Urea Nitrogen 20.0 mg/dL (8-24); CO2, Blood 25.0 mmol/L (21-32); Calcium, Blood 8.7 mg/dL (8.5-10.1); Chloride, Blood 108.0 mmol/L (98-108); Creatinine, Blood 1.53 mg/dL (0.60-1.20); Globulin, Blood 3.8 g/dL (2.2-4.0); Glucose, Blood 122.0 mg/dL (70-99); Potassium, Blood 4.2 mmol/L (3.5-5.5); Sodium, Blood 137.0 mmol/L (136-145); Total Protein, Blood 7.0 g/dL (6.4-8.2)
[2025-10-25] MEDS ORDERED: OXAYDO5 M1 PO (14:52)
[2025-10-25 15:00] VITALS: BP 122/78
== END 2025-10-25 15:13 | disposition home or self-care (01) ==
LOC: ER 08:30
PROVIDERS: Emergency Medicine
DX: G89.18 Other acute postprocedural pain (principal); R07.81 Pleurodynia; J44.9 Chronic obstructive pulmonary disease, unspecified; Z87.891 Personal history of nicotine dependence; Z79.899 Other long term (current) drug therapy
CPT/HCPCS: 71046; 71260; 80053; 83880; 84484; 85025; 85651; 86140; 93005; 93010; 99285-25; A9270; Q9967

== ENCOUNTER 2025-10-29 04:16 | Emergency (ER) | payer OTHER ==
[~2025-10-29] VITALS: Ht 172.7 cm; Wt 102.1 kg
[~2025-10-29 04:16] MED LIST changes: +OXAYDO5 M1 PO
[2025-10-29 04:52] LABS: BASOPHILS ABSOLUTE AUTO 0.06 K/mm3 (0.00-0.23); BASOPHILS PERCENT AUTO 1 % (0-2); EOSINOPHILS ABSOLUTE AUTO 0.52 K/mm3 (0.00-0.68); EOSINOPHILS PERCENT AUTO 8 % (0-6); Hematocrit 43.9 % (37.0-53.0); Hemoglobin 14.7 g/dL (13.5-17.5); IMMATURE GRAN ABSOLUTE AUTO 0.07 K/mm3 (0.00-0.10); IMMATURE GRAN PERCENT AUTO 1 % (0-1); LYMPHOCYTES ABSOLUTE AUTO 1.24 K/mm3 (0.84-5.20); LYMPHOCYTES PERCENT AUTO 18 % (21-46); MONOCYTES ABSOLUTE AUTO 0.61 K/mm3 (0.16-1.47); MONOCYTES PERCENT AUTO 9 % (4-13); Mean Corpuscular HGB Conc 33.5 g/dL (31.5-36.5); Mean Corpuscular Volume 89 fL (80-100); NEUTROPHILS ABSOLUTE AUTO 4.45 K/mm3 (1.96-9.15); NEUTROPHILS PERCENT AUTO 64 % (41-73); NRBC ABSOLUTE 0.00 K/mm3 (0.00-0.02); NRBC Auto 0.0 /100 WBC (0.0-0.2); Platelet Count 207 K/mm3 (150-400); RDW Coefficient Variation 13.2 % (11.7-14.2); RDW Standard Deviation 43.3 fL (35.1-46.3)
[2025-10-29 05:14] LABS: Alanine Aminotransfer (ALT/SGP 19.0 U/L (12-78); Albumin, Blood 2.9 g/dL (3.4-5.0); Albumin/Globulin Ratio 0.7 (0.8-1.8); Anion Gap 10.0 mmol/L (3-11); Aspartate Aminotrans (AST/SGOT 18.0 U/L (12-37); Bilirubin, Total 1.0 mg/dL (0.1-1.0); Blood Urea Nitrogen 21.0 mg/dL (8-24); CO2, Blood 22.0 mmol/L (21-32); Calcium, Blood 9.0 mg/dL (8.5-10.1); Chloride, Blood 108.0 mmol/L (98-108); Creatinine, Blood 1.59 mg/dL (0.60-1.20); Globulin, Blood 3.9 g/dL (2.2-4.0); Glucose, Blood 103.0 mg/dL (70-99); Magnesium, Blood 2.1 mg/dL (1.6-2.4); Potassium, Blood 4.1 mmol/L (3.5-5.5); Sodium, Blood 136.0 mmol/L (136-145); Total Protein, Blood 6.8 g/dL (6.4-8.2)
[2025-10-29 06:00] VITALS: BP 145/79
== END 2025-10-29 06:18 | disposition home or self-care (01) ==
LOC: ER 04:16
PROVIDERS: Student in an Organized Health Care Education/Training Program
DX: R06.02 Shortness of breath (principal); R07.89 Other chest pain; I25.10 Atherosclerotic heart disease of native coronary artery without angina pectoris; I25.2 Old myocardial infarction; E78.5 Hyperlipidemia, unspecified; I12.9 Hypertensive chronic kidney disease with stage 1 through stage 4 chronic kidney disease, or unspecified chronic kidney disease; N18.30 Chronic kidney disease, stage 3 unspecified; K21.9 Gastro-esophageal reflux disease without esophagitis; Z86.711 Personal history of pulmonary embolism; Z95.5 Presence of coronary angioplasty implant and graft; Z95.1 Presence of aortocoronary bypass graft; Z87.891 Personal history of nicotine dependence; Z88.5 Allergy status to narcotic agent; Z88.3 Allergy status to other anti-infective agents; Z79.51 Long term (current) use of inhaled steroids; Z79.01 Long term (current) use of anticoagulants; Z79.899 Other long term (current) drug therapy
CPT/HCPCS: 71045; 80053; 83690; 83735; 84484; 85025; 93005; 93010; 99285-25

== ENCOUNTER 2025-11-06 08:10 | Inpatient (IN) | payer OTHER ==
[~2025-11-06] VITALS: Ht 172.7 cm; Wt 102.0 kg
[2025-11-06] MEDS ORDERED: FentaNYL Citrate 50 MCG/ML 2 ML Injection IV ONE ×2 (08:15→09:30)
[2025-11-06 08:34] LABS: BASOPHILS ABSOLUTE AUTO 0.08 K/mm3 (0.00-0.23); BASOPHILS PERCENT AUTO 1 % (0-2); EOSINOPHILS ABSOLUTE AUTO 0.71 K/mm3 (0.00-0.68); EOSINOPHILS PERCENT AUTO 7 % (0-6); Hematocrit 44.7 % (37.0-53.0); Hemoglobin 14.8 g/dL (13.5-17.5); IMMATURE GRAN ABSOLUTE AUTO 0.25 K/mm3 (0.00-0.10); IMMATURE GRAN PERCENT AUTO 3 % (0-1); LYMPHOCYTES ABSOLUTE AUTO 0.96 K/mm3 (0.84-5.20); LYMPHOCYTES PERCENT AUTO 10 % (21-46); MONOCYTES ABSOLUTE AUTO 1.06 K/mm3 (0.16-1.47); MONOCYTES PERCENT AUTO 11 % (4-13); Mean Corpuscular HGB Conc 33.1 g/dL (31.5-36.5); Mean Corpuscular Volume 91 fL (80-100); NEUTROPHILS ABSOLUTE AUTO 7.08 K/mm3 (1.96-9.15); NEUTROPHILS PERCENT AUTO 70 % (41-73); NRBC ABSOLUTE 0.00 K/mm3 (0.00-0.02); NRBC Auto 0.0 /100 WBC (0.0-0.2); Platelet Count 185 K/mm3 (150-400); RDW Coefficient Variation 13.2 % (11.7-14.2); RDW Standard Deviation 44.1 fL (35.1-46.3)
[2025-11-06 08:50] LABS: Alanine Aminotransfer (ALT/SGP 17.0 U/L (12-78); Albumin, Blood 2.9 g/dL (3.4-5.0); Albumin/Globulin Ratio 0.8 (0.8-1.8); Anion Gap 8.0 mmol/L (3-11); Aspartate Aminotrans (AST/SGOT 17.0 U/L (12-37); Bilirubin, Total 1.0 mg/dL (0.1-1.0); Blood Urea Nitrogen 30.0 mg/dL (8-24); CO2, Blood 27.0 mmol/L (21-32); Calcium, Blood 8.7 mg/dL (8.5-10.1); Chloride, Blood 102.0 mmol/L (98-108); Creatinine, Blood 1.82 mg/dL (0.60-1.20); Globulin, Blood 3.7 g/dL (2.2-4.0); Glucose, Blood 115.0 mg/dL (70-99); Magnesium, Blood 2.0 mg/dL (1.6-2.4); Potassium, Blood 4.3 mmol/L (3.5-5.5); Sodium, Blood 133.0 mmol/L (136-145); Total Protein, Blood 6.6 g/dL (6.4-8.2)
[2025-11-06] MEDS ORDERED: HYDROmorphone HCl/Pf 1MG SYR IV ONE ×2 (09:30→12:50)
[2025-11-06] MEDS ORDERED: DiphenhydrAMINE HCl 50 MG/ML 1ML Vial IV ONE (09:30)
[2025-11-06] MEDS ORDERED: Dexamethasone Sod Phos 10 MG/ML 1ML VIAL IV ONE (10:00)
[2025-11-06] MEDS ORDERED: Morphine Sulfate 4 MG/1 ML Injection IV ONE (12:00)
[2025-11-06] MEDS ORDERED: FLU VACC TS2025(65UP)/MF59C/PF 45 MCG/0.5 ML SYRINGE IM SCH (13:10)
[2025-11-06 15:05] VITALS: BP 129/73
[2025-11-06] MEDS ORDERED: HYDROmorphone HCl/Pf 1MG SYR IV PRN (16:10)
[2025-11-06] MEDS ORDERED: Ondansetron HCl 2 MG / ML 2ML Vial IV PRN (16:10)
[2025-11-06] MEDS ORDERED: Tiotropium Bromide 2.5 MCG/ACT MIST INHAL (10 ACT/4 GM) INH SCH (17:20)
[2025-11-06] MEDS ORDERED: OxyCODONE 5 mg/Acetamin 325 mg TABLET PO PRN (17:25)
[2025-11-06] MEDS ORDERED: Albuterol HFA200 ACT/6.7 GM INH INH PRN (17:35)
--- NOTE | 2025-11-06 18:45 | NUR ---
END OF SHIFT NOTE PATIENT RESTING AT BEDSIDE WITH DINNER TRAY. ADMIT FROM THE ER TODAY FOR HYPOXIA AND RESP FAIULURE. ON 2L NC, O2 SATS >90%. PAIN TO LOWER LEFT RIB/LUNG AREA DUE TO DVT. WAS IN RECENTLY FOR SAME DIAGNOSIS. ON TELE, A&O4, ABLE TO MAKE NEEDS KNOWN. USING URINAL AT BEDSIDE IND. BEDREST FOR SOB AND PAIN. NO OTHER CONCERNS FOR THIS SHIFT.
[2025-11-06 20:21] VITALS: BP 139/73
[2025-11-06] MEDS ORDERED: Isosorbide Mononitrate 60 MG TABCR PO SCH (21:00)
[2025-11-06] MEDS ORDERED: Albuterol 2.5 MG/3 ML VIAL INH PRN (21:50)
[2025-11-06 23:58] VITALS: BP 142/71
[2025-11-07 03:54] VITALS: BP 113/68
--- NOTE | 2025-11-07 06:16 | NUR ---
SHIFT SUMMARY PATIENT IS ALERT AND ORIENTED. PATIENT HAS HAD NO ACUTE EVENTS THIS SHIFT. VITAL SIGNS REVIEWED. PATIENT HAS REPORTED PAIN THIS SHIFT AND MEDICATED PER EMAR. PATIENT HAS HAD NO COMPLAINTS OF NAUSEA, VOMITTING OR SOB THIS SHIFT. PATIENT HAS BEEN ON 2L NC THI SHIFT. PATIENT HAS BEEN ON TELE WITH NO EVENTS. PATIENT HAS BEEN USING URINIAL IND. PATIENT HAS BEEN BEDREST FOR DESATTING AND PAIN. BED IN LOCKED AND LOWEST POSITION. CALL LIGHT IN PLACE.
[2025-11-07 07:14] VITALS: BP 119/69
[2025-11-07] MEDS ORDERED: Cholecalciferol 1000 Unit Tablet (=25MCG) PO SCH (09:00)
[2025-11-07] MEDS ORDERED: Polyethylene Glycol 3350 17 gm PO SCH (13:05)
--- NOTE | 2025-11-07 13:46 | NUR ---
LATE ENTRY APPROX 1200 NOTIFIED BY [facility] OF [facility] ON MONITOR. PT C/O OF PAIN ON RIGHT SIDE THAT RADIATED TO BACK WITH COUGH THAT HAD BEEN OCCURRING SINCE ADMISSION. NO NEW SYMPTOMS. DR. JENNINGS NOTIFIED AND CAME TO ASSESS AT BEDSIDE. STAT EKG AND TROP ORDERED.
--- NOTE | 2025-11-07 13:53 | NUR ---
DR. JENNINGS AT BEDSIDE. PT EKG SHOWS RBB THAT IS CHRONIC. PLAN TO ORDER ECHO.
[2025-11-07 15:55] VITALS: BP 117/68
--- NOTE | 2025-11-07 18:08 | NUR ---
PT IS ALERT AND ORIENTED X4, PLEASANT AND COOPERATIVE WITH ALL CARES. SBA TO BATHROOM DUE TO INCREASE O2 DEMAND WITH AMBULATION. 4L NC SAT >90%. PER PT, 1 EPISODE OF HEMOPTYSIS OVERNIGHT. DISCUSSED WITH DR. JENNINGS. EKG AND ECHO TODAY. PT DENIES CHEST PAIN AND PRESSURE AT THIS TIME. CONTINUES TO ENDORSE RIDE SIDE PAIN THAT RADIATES TO BACK WITH DEEP BREATHING AND COUGH. CALLS APPROPRIATELY.
[2025-11-07 19:27] VITALS: BP 115/70
[2025-11-07 23:39] VITALS: BP 103/59
[2025-11-08] VITALS (56 sets, daily range): BP systolic 71–123; BP diastolic 46–89
[2025-11-08 02:25] LABS: BASOPHILS ABSOLUTE AUTO 0.04 K/mm3 (0.00-0.23); BASOPHILS PERCENT AUTO 0 % (0-2); EOSINOPHILS ABSOLUTE AUTO 0.00 K/mm3 (0.00-0.68); EOSINOPHILS PERCENT AUTO 0 % (0-6); Hematocrit 33.7 % (37.0-53.0); Hemoglobin 11.6 g/dL (13.5-17.5); IMMATURE GRAN ABSOLUTE AUTO 0.22 K/mm3 (0.00-0.10); IMMATURE GRAN PERCENT AUTO 1 % (0-1); LYMPHOCYTES ABSOLUTE AUTO 0.48 K/mm3 (0.84-5.20); LYMPHOCYTES PERCENT AUTO 2 % (21-46); MONOCYTES ABSOLUTE AUTO 1.52 K/mm3 (0.16-1.47); MONOCYTES PERCENT AUTO 5 % (4-13); Mean Corpuscular HGB Conc 34.4 g/dL (31.5-36.5); Mean Corpuscular Volume 88 fL (80-100); NEUTROPHILS ABSOLUTE AUTO 26.21 K/mm3 (1.96-9.15); NEUTROPHILS PERCENT AUTO 92 % (41-73); NRBC ABSOLUTE 0.00 K/mm3 (0.00-0.02); NRBC Auto 0.0 /100 WBC (0.0-0.2); Platelet Count 297 K/mm3 (150-400); RDW Coefficient Variation 13.2 % (11.7-14.2); RDW Standard Deviation 42.1 fL (35.1-46.3)
[2025-11-08 02:26] LABS: pH Blood Venous 7.41 (7.34-7.37)
[2025-11-08 02:44] LABS: Alanine Aminotransfer (ALT/SGP 16.0 U/L (12-78); Albumin, Blood 2.5 g/dL (3.4-5.0); Albumin/Globulin Ratio 0.7 (0.8-1.8); Anion Gap 13.0 mmol/L (3-11); Aspartate Aminotrans (AST/SGOT 11.0 U/L (12-37); Bilirubin, Total 0.5 mg/dL (0.1-1.0); Blood Urea Nitrogen 100.0 mg/dL (8-24); CO2, Blood 23.0 mmol/L (21-32); Calcium, Blood 9.1 mg/dL (8.5-10.1); Chloride, Blood 101.0 mmol/L (98-108); Creatinine, Blood 2.18 mg/dL (0.60-1.20); Globulin, Blood 3.5 g/dL (2.2-4.0); Glucose, Blood 177.0 mg/dL (70-99); Potassium, Blood 4.7 mmol/L (3.5-5.5); Sodium, Blood 132.0 mmol/L (136-145); Total Protein, Blood 6.0 g/dL (6.4-8.2)
[2025-11-08] MEDS ORDERED: LORazepam 2 MG/ML 1ML Injection IV ONE ×2 (03:20→09:00)
--- NOTE | 2025-11-08 03:40 | NUR ---
STAT ORDERS FOR ACUTE RESP DISTRESS: PT CONTINUED TO HAVE A LARGE AMT OF MIXED THICK/THIN BROWN PRODUCTIVE SPUTUM DURING INTERMITTENT COUGHING FITS BUT C/O OF SUDDEN ONSET SOB, DYSPNEA AND INCREASED WOB DESPITE MAINTAINING SPO2>94% ON 4L O2 VIA NC. HE APPEARED PALE, DIAPHORETIC AND TACHYPNEIC W/ACCESSORY MUSCLE USE. LS SLIGHTLY TIGHT W/SCATTERED WHEEZES AND RT CONSULTED FOR BREATHING TX. O2 INCREASED TO 7L O2 FOR COMFORT/WOB BUT PT REPORTED NO RELIEF. MADE AWARE AND NEW ORDERS RECEIVED FOR STAT CXR, VBG, LACTIC ACID, CBC, CHEM PROFILE AND TROPONIN. UPON RESULTS, ASSESSED PT AND RX'D ATIVAN 1MG IV X1 FOR POSSIBLE ANXIETY AFTER NO ACUTE FINDINGS WERE REVEALED AND STATED PROBABLE NEED FOR REPEAT CT IN AM. MEDICATION RECEIVED AND RESP STATUS HAS IMPROVED SOME BUT PT CONT'S TO REPORT INTERMITTENT SOB AND ANXIETY. WILL CONTINUE TO MONITOR CLOSELY. REVEALED B
--- NOTE | 2025-11-08 05:43 | NUR ---
SUMMARY: PT IS A/OX4, ENDORSES NEEDS AND IS PLEASANT AND COOPERATIVE W/CARE. HE'S SBA TO BATHROOM FOR DYSPNEA UPON EXERTION AND INCREASED O2 DEMAND. HE BEGAN ON 4L O2 VIA NC BUT WAS INCREASED TO 7L HUMIDIFIED HIGH FLOW O2 FOLLOWING EPISODE OF ACUTE RESP DISTRESS. PT HAD BEEN HAVING PERSISTENT HACKING PRODUCTIVE COUGH W/LARGE AMT OF BROWN MIXED THICK/THIN SPUTUM THEN BECOME DYSPNEIC, TACHYPNEIC AND ANXIOUS RE:INCREASED WOB AND SOB W/DIFFICULTY "CATCHING BREATH". BX TX WAS RECEIVED FOR NO RELIEF AND ASSOCIATED BACK AND PLEURITIC PAIN WAS WORSE DESPITE PRN OXYCODONE. SEE PRIOR NOTE FOR PT'S PRESENTATION, NEW MD ORDERS AND INTERVENTIONS. HE SOMEWHAT CALMED AFTER ADMINISTRATION OF IV ATIVAN BUT CONT'S TO HAVE PRODUCTIVE COUGHING FITS PAIRED W/BOUTS OF HIGH ANXIETY. PROBABLE REPEAT CT TO BE DONE TODAY BUT ONE HASN'T BEEN RX'D YET. PT ALSO RECEIVED TUMS FOR INDIGESTION AND BOWEL PROTOCOL MEDS WERE COMMENCED FOR NO BM X4DAYS. NO ACUTE NEW FINDINGS WERE REVEALED FROM STAT LABS OR IMAGING BUT RENAL FUNCTION APPEARS TO BE WORSENING, PROVIDER IS AWARE. VSS/AFEBRILE. HE'S REMAINED NSR-S.TACH ON TELE W/HR 80'S-100'S BPM. WILL REPORT TO DAY RN.
--- NOTE | 2025-11-08 07:15 | NUR ---
DURING BEDSIDE SHIFT REPORT. NOC RN, YOHAN AND MYSELF NOTED PT DIAPHORETIC, C/O CONFUSION, TACHYPNIC, AND STATING "I DONT FEEL GOOD". LABS AND IMAGING OVERNIGHT NOT STANDING OUT. DR. JENNINGS NOTIFIED OF OUR ASSESMENT. PER DR. MICHAELA MD WILL PLACE ORDERS. CONTINUE TO MONITOR AT THIS TIME.
[2025-11-08] MEDS ORDERED: FentaNYL Citrate 50 MCG/ML 2 ML Injection IV PRN ×2 (08:30→15:05)
--- NOTE | 2025-11-08 08:40 | NUR ---
PT PALLOR AND COOL TO TOUCH. NO RELIEF IN SYMPTOMS. SAT 95% ON 7L NC. RR 33. HR 108. BP 96/[address] JENNINGS CALLED TO BEDSIDE. PER DR. JENNINGS HOLD BP MEDS, OK TO GIVE METOPROLOL. RESP AND SPUTUM SENT TO LAB. PLAN TO TRANSFER TO PCU
--- NOTE | 2025-11-08 09:15 | NUR ---
PER DR. JENNINGS OK TO GIVE IV LASIX
[2025-11-08] MEDS ORDERED: Vancomycin (Pharmacy Consult) IV SCH (10:00)
[2025-11-08] MEDS ORDERED: Meropenem 2,000 MG in NS 250 ML IV SCH (10:10)
[2025-11-08] MEDS ORDERED: Pantoprazole Sodium 40 MG Injection IV STA (10:18)
[2025-11-08 10:21] LABS: Acinetobacter baumannii DNA Not Detected copy/mL (NOT DETECT); Enterobacter cloacae DNA Not Detected copy/mL (NOT DETECT); Escherichia coli DNA Not Detected copy/mL (NOT DETECT); Haemophilus influenzae DNA Not Detected copy/mL (NOT DETECT); Klebsiella aerogenes DNA Not Detected copy/mL (NOT DETECT); Klebsiella oxytoca DNA Not Detected copy/mL (NOT DETECT); Klebsiella pneumoniae DNA Not Detected copy/mL (NOT DETECT); Moraxella catarrhalis DNA Not Detected copy/mL (NOT DETECT); Proteus sp DNA Not Detected copy/mL (NOT DETECT); Pseudomonas aeruginosa DNA Not Detected copy/mL (NOT DETECT); Serratia marcescens DNA Not Detected copy/mL (NOT DETECT)
[2025-11-08 10:22] LABS: Chlamydia pneumonia Not Detected (NOT DETECT); Human Coronavirus RNA Not Detected (NOT DETECT); Human Metapneumovirus RNA Not Detected (NOT DETECT); Influenza virus A RNA Not Detected (NOT DETECT); Influenza virus B RNA Not Detected (NOT DETECT); Respiratory syncytial Vir RNA Not Detected (NOT DETECT); Rhinovirus+Enterovirus RNA Not Detected (NOT DETECT); Staphylococcus aureus DNA Detected Bin >=10^7 copy/mL (NOT DETECT); Streptococcus agalactiae DNA Not Detected copy/mL (NOT DETECT); Streptococcus pneumoniae DNA Not Detected copy/mL (NOT DETECT); Streptococcus pyogenes DNA Not Detected copy/mL (NOT DETECT); mecA/C and MREJ Resist Gene Not Detected
[2025-11-08 10:23] LABS: Influenza A/2009-H1 Not Detected (NOT DETECT); SARS-Cov-2 (COVID-19), BioFire Not Detected (NOT DETECT)
[2025-11-08 11:06] LABS: Hematocrit 27.0 % (37.0-53.0); Hemoglobin 9.1 g/dL (13.5-17.5)
[2025-11-08] MEDS ORDERED: Metoclopramide HCl 5MG / ML 2ML Vial IV ONE (11:45)
[2025-11-08] MEDS ORDERED: NS 1,000 ML IV ONE ×3 (11:59→17:10)
[2025-11-08] MEDS ORDERED: FentaNYL Citrate 50 MCG/ML 2 ML Injection IV ONE (12:00)
[2025-11-08] MEDS ORDERED: EpiNEPhrine 1 MG/1 ML 1ML Vial ONE (12:03)
--- NOTE | 2025-11-08 12:25 | NUR ---
SHIFT SUMMARY/TRANSFER NOTE PATIENT ARRIVED A TRANSFER FROM MEDICAL FLOOR AROUND 1000 THIS AM. BP WAS LOW WITH MAP >65. BLOOD PRESSURE SET TO CYCLE Q15 MIN. CURRENTLY ON CONTINUOUS TELE MONITORING. HR WAS NSR/ST. O2 SATS >92% ON 6L NC. AO X4 AND DROUSY. PATIENT EXPRESSED NAUSEA AND PAIN IN ABD/CHEST AND BEGAN VOMITING DARK RED/BROWN LIQUID. MEDICATED PER EMAR. PROVIDER NOTIFIED. ONCE PROVIDER WAS BEDSIDE. NEW ORDERS PLACED. MEDICATED PER EMAR. VOMITING CONTINUED, NG TUBE PLACED AND CONNECTED TO SUCTION PER ORDER. NG TUBE DRAINING DARK RED/BROWN LIQUID TO SUCTION. PATIENT STATES NO BM FOR SEVERAL DAYS. BLOOD PRESSURE DECREASE MAP <65. PROVIDER NOTIFIED. FLUID BOLUS GIVEN PER EMAR. ORDERS FOR TYPE AND SCREEN AND BLOOD TRANSFUSION UPDATED IN CHART. LABS DRAWN AND SENT PER CHART. GASTROINTEROLOGY SPECIALIST IN ROOM. ORDERS UPDATED. DAY SURGERY IN ROOM. NPO ORDERS PLACED. PATIENT TRANSFERRED TO ICU. PATIENT ON IV ABX, O2 CANISTER 8L NC WHILE BEING MOVED TO ICU. GAVE REPORT TO ICU NURSE.
[2025-11-08] MEDS ORDERED: NS 500 ML IV ONE (12:29)
[2025-11-08] MEDS ORDERED: NS 500 ML IV SCH (12:30)
[2025-11-08] MEDS ORDERED: FentaNYL Citrate 50 MCG/ML 2 ML Injection ONE (12:38)
--- NOTE | 2025-11-08 14:00 | NUR ---
ASSUMPTION OF CARE RECIEVED BEDSIDE REPORT FROM SHARLENE BAUTISTA. EGD CURRENTLY IN PROGRESS @ BEDSIDE. ANESTHESIA MANAGING SEDATION/IV FLUIDS. PT INTUBATED c 7.0 TUBE VIA ANETHESIA PRIOR TO PROCEDURE. 1 UNIT PRBCs CURRENTLY INFUSING.
[2025-11-08] MEDS ORDERED: Pantoprazole Sodium 40 MG Injection IV SCH (15:00)
[2025-11-08] MEDS ORDERED: LORazepam 2 MG/ML 1ML Injection IV PRN (15:05)
[2025-11-08] MEDS ORDERED: NS 1,000 ML IV SCH (15:05)
--- NOTE | 2025-11-08 15:11 | NUR ---
11/08/25 1511 Maria Victoria Hairston 1230- INTO ICU 12 FOR EGD. PT INTUBATED BY DR. HUNT PRIOR TO PROCEDURE. SEE ANESTHESIA RECORD.
[2025-11-08 15:38] LABS: pH Blood Venous 7.26 (7.34-7.37)
[2025-11-08 17:48] LABS: Hematocrit 28.9 % (37.0-53.0); Hemoglobin 10.0 g/dL (13.5-17.5)
[2025-11-08 18:01] LABS: BASOPHILS ABSOLUTE AUTO 0.02 K/mm3 (0.00-0.23); BASOPHILS PERCENT AUTO 0 % (0-2); EOSINOPHILS ABSOLUTE AUTO 0.00 K/mm3 (0.00-0.68); EOSINOPHILS PERCENT AUTO 0 % (0-6); Hematocrit 29.0 % (37.0-53.0); Hemoglobin 10.1 g/dL (13.5-17.5); IMMATURE GRAN ABSOLUTE AUTO 0.17 K/mm3 (0.00-0.10); IMMATURE GRAN PERCENT AUTO 1 % (0-1); LYMPHOCYTES ABSOLUTE AUTO 0.36 K/mm3 (0.84-5.20); LYMPHOCYTES PERCENT AUTO 2 % (21-46); MONOCYTES ABSOLUTE AUTO 1.10 K/mm3 (0.16-1.47); MONOCYTES PERCENT AUTO 6 % (4-13); Mean Corpuscular HGB Conc 34.8 g/dL (31.5-36.5); Mean Corpuscular Volume 90 fL (80-100); NEUTROPHILS ABSOLUTE AUTO 16.02 K/mm3 (1.96-9.15); NEUTROPHILS PERCENT AUTO 91 % (41-73); NRBC ABSOLUTE 0.00 K/mm3 (0.00-0.02); NRBC Auto 0.0 /100 WBC (0.0-0.2); Platelet Count 173 K/mm3 (150-400); RDW Coefficient Variation 14.0 % (11.7-14.2); RDW Standard Deviation 46.0 fL (35.1-46.3)
--- NOTE | 2025-11-08 19:43 | NUR ---
SHIFT SUMMARY PT INTUBATED/SEDATED. PT RESPONDS TO VERBAL/PAINFUL STIMULI. PROPOFOL INFUSING PER FLOWSHEET. SPO2 >95%, TOLERATING VENTILATOR, SEE RT FLOWSHEET FOR SETTINGS. PER GI DOC, NO NG/OG TUBE TO BE PLACED S/P EGD R/T POSSIBLE ULCER IRRITATION. DURING BEDSIDE EGD, 5 CLIPS PLACED. APPROX 2 CANNISTERS OF BLOODY DRAINAGE OUTPUT FROM ORAL CAVITY DURING CASE. PT HAS SCANT AMOUT OF SANGUINEOUS DRAINAGE FROM NARES. IV FLUID BOLUS GIVEN TO MAINTAIN MAP >65, HR 80s. IV FLUIDS/ABX INFUSING PER EMAR. IV TO RFA INFILTRATED, IV REMOVED, POWERGLIDE TO TRACY PLACED. GARLAND DRAINING YELLOW URINE TO GRAVITY. ANTICIPATED TRANSFER TO ANOTHER HOSPITAL R/T INCREASED SURGICAL CARE NEEDS. AWARE OF PLAN. BEDSIDE REPORT GIVEN TO EVER BAUTISTA.
[2025-11-08] MEDS ORDERED: Cetylpyridinium Chloride 1 EA MISC MT SCH (20:00)
[2025-11-08] MEDS ORDERED: Fluconazole 100MG/Iso-Sod 50ML 50 ML IV SCH (20:00)
[2025-11-08] MEDS ORDERED: Lactobacil 2-S.Thermo-Bifido 1 1 Cap PO SCH (21:00)
--- NOTE | 2025-11-08 21:58 | NUR ---
ASSUMPTION OF CARE CARE OF PT ASSUMED FOLLOWING BEDSIDE SHIFT REPORT FROM DAY RN. PT INTUBATED AND SEDATED, ACVC+ 18/550/5.0/40% WITH SAT > 92% PT RESPONDS TO VOICE AT ONE POINT AND OPENDS EYES ON COMMAND. PROPOFOL INFUSING AT 40 MCG/KG/MIN, RASS +2 TO -2. WILL ADMIN PAIN MED SEDATION ADJUNCT AND PT WAS REQUIRING CONSISTENT PAIN MEDICATION BEFORE THE EGD AND INTUBATION TODAY. CN'S GROSSLY INTACT. EXTREMTITY REFLEXES INTACT. TEMP 97.4 VIA TEMP GARLAND. PT SINUS RHYTHM TO SINUS TACH. CARDIAC LEADS SHOWING OCCASIONAL SINUS TACH UP TO 170'S BUT THE CONNECTION DOES NOT SEEM CLEAN. AFTER MOVING LEADS AND CORDS AROUND THERE WERE NO MORE INSTANCES OF THIS. PT STILL HAS PO MEDS ON EMAR BUT CAN NOT RECEIVE THEM DUE TO LACK OF OG TUBE. BP STABLE BUT SOFT; PT RECEIVED BOLUS OF FLUID AND 2 UNITS OF PRBC'S DURING EGD. WILL MONITOR CLOSELY. OG TUBE NOT PLACED DUE TO LOCATION OF BLEEDING ULCER IDENTIFIED AND CLIPPED TODAY. COPIOUS BRIGHT RED BLOOD, DARK BROWN BLOOD ALONG WITH CLOT REMOVED WITH DEEP AND MORE SO, ORAL SUCTIONING. BLEEDING/SECRETIONS IN THESE AREAS APPEARS TO HAVE DECREASED AT TIME OF WRITING THIS (2200). AB IS MODERATELY DISTENDED AND BOWEL SOUNDS ARE ACTIVE TO HYPOACTIVE THROUGHOUT. NO BM SINCE ARRIVAL TO ICU THIS AM. TEMP GARLAND IN PLACE AND PATENT. NS INFUSING AT 125ML/HR. WILL ADMINISTER FLUCONAZOLE AND CONTINUE TO MONITOR. [facility] HAS ACCEPTED THE PT FOR TRANSFER AND A RIDE IS CURRENTLY BEING SEARCHED FOR.
[2025-11-09] MEDS ORDERED: Hydrogen Peroxide 1.5 % Solution MT SCH
--- NOTE | 2025-11-09 01:43 | NUR ---
SHIFT SUMMARY/TRANSFER NOTE AT 54, [facility] RN'S LEFT WITH THE PT ON THEIR GURNEY, HAVING BEEN TRANSFERRED TO THEIR VENTILATOR. PT WAS ON 50MCG/KG/MIN OF PROPOFOL FOR SEDATION, AND 2 DOSES OF 50 MCG FENTANYL HAD BEEN GIVEN DURING SHIFT FOR SEDATION ADJUNCT AND PRESUMPTIVE PAIN BASED ON CPOT. VENT SETTINGS AT TIME OF TRANSFER WERE ACVC+ 18/550/5.0/40 PRODUCING GOOD SATURATIONS, > 92%. LUNG SOUNDS WERE COARSE IN ANTERIOR PIERRE. ETT SIZE WAS 7.0 AND 24.0 AT NARES. DEEP SUCTIONING REVEALED MILKY BROWN, THICK OUTPUT, REQUIRING DILUTION WITH NS SQUIRTS BY THE RESPIRATORY THERAPIST. ORAL SUCTIONING REVEALED BRIGHT RED BLOOD MIXED WITH OLD BLOOD (DARK BROWN) AND SOME CLOTS, WHICH DECREASED CONSIDERABLY FROM START OF SHIFT AT 1900 UNTIL TRANSFER OUT. PT WAS IN SINUS RHYTHM TO TACHY 80-110 WITH STABLE TO SOFT BP, RECEIVING 125 ML/HR OF NORMAL SALINE ALL SHIFT AND AT TIME OF TRANSFER. MAPS STAYED ABOVE 65 WITHOUT ANY PRESSORS OR BOLUSES. NO ECTOPY OF NOTE WAS IDENTIFIED ON CARDIAC MONITORING. PT'S ABDOMEN MODERATELY DISTENDED WITH INTACT BOWEL SOUNDS. NO BM DURING SHIFT. NO OG TUBE IN PLACE DUE TO LOCATION OF ALCIRA LESIONS IDENTIFIED DURING EGD. TEMP GARLAND IN PLACE TO GRAVITY AND PATENT, PRODUCING > 100ML/HR OF PALE YELLOW OUTPUT. PT LEFT AT 005 WITH [facility] RN'S AND [facility] STAFF, ALONG WITH HIS PERSONAL ITEMS INCLUDING WATCH, WALLET, PHONE, AND DENTURES, ALL NEATLY APPROPRIATED TO ZIPLOC BAGS. PT'S CALLED MINUTES AFTER PT EXITED BUILDING AND REPORT WAS GIVEN TO RN AT CARDIAC ICU IN [facility] AT 0125.
[2025-11-09] MEDS ORDERED: Meropenem 2,000 MG in NS 250 ML IV SCH (04:00)
[2025-11-09] MEDS ORDERED: Propofol 10mg/ml 20 ml Vial (Procedural) IV ONE (06:55)
[2025-11-09] MEDS ORDERED: Midazolam HCl 1MG / ML 2ML Vial IV ONE (06:55)
[2025-11-09] MEDS ORDERED: SuccINYLCHOLINE Chloride 100 MG/5 ML 5MLSYR IV ONE (06:55)
[2025-11-09] MEDS ORDERED: Etomidate 2MG / ML 10ML Vial IV ONE (06:55)
== END 2025-11-09 00:55 | disposition short-term general hospital (02) | DRG 208 ==
LOC: ER 08:10 → MEDS 08:11 → PCU 11-07 13:47 → ICUE 11-07 13:47 → MEDS 11-07 13:47 → PCU 11-08 09:41 → ICUE 11-08 12:20
PROVIDERS: Family Medicine; Internal Medicine Critical Care Medicine; Student in an Organized Health Care Education/Training Program; ADMIT Family Medicine
PROC: 0W3P8ZZ Control Bleeding in Gastrointestinal Tract, Via Natural or Artificial Opening Endoscopic (ICD-10-PCS; 2025-11-08)
PROC: 0T9B70Z Drainage of Bladder with Drainage Device, Via Natural or Artificial Opening (ICD-10-PCS; 2025-11-08)
PROC: 30233N1 Transfusion of Nonautologous Red Blood Cells into Peripheral Vein, Percutaneous Approach (ICD-10-PCS; 2025-11-08)
PROC: 0D9670Z Drainage of Stomach with Drainage Device, Via Natural or Artificial Opening (ICD-10-PCS; 2025-11-08)
PROC: 3E03329 Introduction of Other Anti-infective into Peripheral Vein, Percutaneous Approach (ICD-10-PCS; 2025-11-08)
PROC: 5A1935Z Respiratory Ventilation, Less than 24 Consecutive Hours (ICD-10-PCS; principal; 2025-11-08 20:00)
PROC: 0BH17EZ Insertion of Endotracheal Airway into Trachea, Via Natural or Artificial Opening (ICD-10-PCS; 2025-11-08 20:00)
DX: J96.01 Acute respiratory failure with hypoxia (principal); I26.99 Other pulmonary embolism without acute cor pulmonale; K25.6 Chronic or unspecified gastric ulcer with both hemorrhage and perforation; J90 Pleural effusion, not elsewhere classified; I82.421 Acute embolism and thrombosis of right iliac vein; D62 Acute posthemorrhagic anemia; R00.0 Tachycardia, unspecified; N18.30 Chronic kidney disease, stage 3 unspecified; I25.10 Atherosclerotic heart disease of native coronary artery without angina pectoris; I12.9 Hypertensive chronic kidney disease with stage 1 through stage 4 chronic kidney disease, or unspecified chronic kidney disease; J44.9 Chronic obstructive pulmonary disease, unspecified; R91.1 Solitary pulmonary nodule; I73.9 Peripheral vascular disease, unspecified; K44.9 Diaphragmatic hernia without obstruction or gangrene; J98.2 Interstitial emphysema; I25.2 Old myocardial infarction; Z95.1 Presence of aortocoronary bypass graft; Z86.79 Personal history of other diseases of the circulatory system; Z88.5 Allergy status to narcotic agent; Z88.1 Allergy status to other antibiotic agents; Z79.02 Long term (current) use of antithrombotics/antiplatelets; Z79.51 Long term (current) use of inhaled steroids; Z79.01 Long term (current) use of anticoagulants; Z79.891 Long term (current) use of opiate analgesic; Z95.820 Peripheral vascular angioplasty status with implants and grafts; Z95.5 Presence of coronary angioplasty implant and graft; Z87.891 Personal history of nicotine dependence; Z78.1 Physical restraint status
CPT/HCPCS: 0202U; 0528U; 31500; 36415; 71045; 71260; 74176; 80053; 82803; 83605; 83735; 83880; 84484; 85014; 85018; 85025; 86850; 86900; 86901; 86923; 87070; 87077; 87147; 87186; 87205; 93005; 93010; 93308; 93321; 94002; 94640; 94664; 94760; 94762; 96374-59; 96375; 96375-59; 96376; 96376-59; 99285-25; A9270; C1751; G0378; J0169; J0330; J0456; J1100; J1171; J1200; J1450; J1938; J2060; J2185; J2250; J2270; J2405; J2470; J2704; J2765; J2919; J3010; J3373; J7030; J7040; J7050; P9016; Q9967